=== PATIENT | female | born 1995 | race Caucasian/White ===

== ENCOUNTER 2024-02-15 21:09 | Inpatient (IN) | payer OTHER, SELFPAY ==
--- NOTE | 2024-02-15 | ECG_ITS ---
Test Reason : CHEST TIGHTNESS Blood Pressure : / mmHG Vent. Rate : 129 BPM Atrial Rate : 129 BPM P-R Int : 112 ms QRS Dur : 086 ms QT Int : 400 ms P-R-T Axes : 000 -02 091 degrees QTc Int : 586 ms Sinus tachycardia Possible Anterior infarct , age undetermined Abnormal ECG No previous ECGs available Referred By: Generic ED Physician Electronically Signed By:DANILO REYNOSO MD
--- NOTE | ~2024-02-15 | CT_ITS ---
EXAMINATION: CT ABDOMEN AND PELVIS WITH CONTRAST CLINICAL INFORMATION: Abdominal pain. Pancreatitis. COMPARISON: None available. TECHNIQUE: Multidetector volumetric images were obtained from the superior aspect of the liver through the pubic symphysis following administration 85 mL of Omnipaque 350 intravenous contrast. Sagittal and coronal reformatted images were obtained on the technologist's workstation. Oral contrast: No This CT examination was performed using dose optimization techniques as appropriate, variously including the following: *Automated exposure control *Adjustment of mA and/or kV according to patient size (this includes techniques or standardized protocols for targeted exams where dose is matched to indication/reason for exam; i.e. extremities or head) *Use of iterative reconstruction technique DLP: 959 mGy-cm FINDINGS: LUNG BASES: The visualized lung bases are unremarkable. LIVER, GALLBLADDER, AND BILIARY TREE: The liver is of diffuse diminished attenuation. No focal liver lesions are seen. There is no intrahepatic biliary duct dilatation. The gallbladder is unremarkable with no evidence of radiopaque gallstones, gallbladder wall thickening, or obvious pericholecystic inflammatory changes. PANCREAS: There is significant peripancreatic infiltration/fluid with fluid tracking along the upper retroperitoneum. The body and tail of the pancreas is of diminished enhancement compared to the neck and head of the pancreas. SPLEEN: Unremarkable. ADRENAL GLANDS: Unremarkable. KIDNEYS AND URETERS: The kidneys are normal in size, shape, and attenuation. No hydronephrosis, hydroureter, or calculi seen. No perinephric stranding. BLADDER: Unremarkable. GASTROINTESTINAL TRACT: The small and large bowel are unremarkable. The appendix is unremarkable. ABDOMINAL WALL: No significant hernia is appreciated. LYMPH NODES: Normal. VASCULAR: Unremarkable. PELVIC VISCERA: Unremarkable. OSSEOUS STRUCTURES: Unremarkable. CT/CT abdomen pelvis w IV con IMPRESSION: 1. Findings consistent with acute pancreatitis. There is diminished enhancement of the body and tail of the pancreas compared to the neck and head of the pancreas. Suspect early pancreatic necrosis. There is significant peripancreatic infiltration/fluid with fluid tracking along the upper retroperitoneum. 2. Hepatic steatosis. Fleischner guidelines were followed.
[2024-02-15 21:12] VITALS: BP 218/148; PULSE 140; RESP 20; TEMP 35.5; O2SAT 100; BMI 29.5
[2024-02-15 21:50] LABS: Hematocrit 40.7 % (37.0-47.0); Hemoglobin 14.9 g/dl (12.0-16.0); Mean Corpuscular HGB Conc 36.6 g/dl (31.0-35.0); Mean Corpuscular Hemoglobin 33.3 pg (27.0-33.0); Mean Corpuscular Volume 91.1 fL (80.0-98.0); Platelet Count 313 X10*3/uL (160-400); Red Blood Count 4.47 X10*6/uL (4.20-5.50); Red Cell Distribution Width 13.4 % (11.0-16.0)
[2024-02-15 21:53] LABS: WBC ABN SCTR FOR CBC 1
[2024-02-15 22:00] VITALS: PULSE 131
--- NOTE | 2024-02-15 22:02 | ED_ITS ---
HPI - General Adult General Chief complaint: General Medical Stated complaint: multiple issues? Time Seen by Provider: 02/15/24 21:58 Source: patient Mode of arrival: ambulatory Limitations: no limitations History of Present Illness HPI narrative: Patient with chronic back pain increased stress after dog's been anxious complaining of upper abdominal pain radiating to back pain palpitation when she arrived in the ER heart rate was in 130s blood pressure 218/148 patient says that her blood pressure and heart rate goes high whenever she gets anxious but not on any medications no headache no chest pain patient also feel nauseated patient's drinks alcohol almost every day and lately been drinking heavy Related Data Allergies Allergy/AdvReac Type Severity Reaction Status Date / Time bupropion [From Wellbutrin] Allergy Unknown Verified 02/15/24 21:15 Review of Systems 2 Review of Systems: Yes all other systems are reviewed and are negative [facility] Social History Social History Unable to assess alcohol history related to: Unknown Smoked in Last 30 Days: Yes Use of substances other than those prescribed or required for medical reasons: Unknown Advance Directives: No Advance Directives Information Provided: No Do you have a plan to hurt others: No Plan Physical Exam ED Vital Signs: Vital Signs - 24 hr 02/15/24 21:12 02/15/24 22:00 02/15/24 22:31 Temperature 96 F L Pulse Rate 140 H 129 H Pulse Rate [Monitor] 131 H Respiratory Rate 20 16 Blood Pressure 218/148 H 204/130 H Pulse Oximetry 100 96 Oxygen Delivery Method Room Air Room Air 02/15/24 23:19 02/15/24 23:48 02/16/24 00:15 Temperature Pulse Rate 128 H 125 H 125 H Pulse Rate [Monitor] Respiratory Rate 16 16 18 Blood Pressure 203/124 H 203/120 H 242/138 H Pulse Oximetry 95 96 Oxygen Delivery Method Room Air Room Air BMI result Body Mass Index 29.5 Appearance: Alert. Oriented X3. No acute distress. Anxious etoh + Eyes: PERRLA ENT: Pharynx normal. Oral Mucosa moist Neck: Normal inspection. Neck supple. CVS: Tachycardic no murmur rub Pulses normal. Respiratory: No respiratory distress. Equal air entry bilateral, no wheezing/rales/rhonchi Abdomen: Soft and tenderness in epigastric area Bowel sounds are present, no mass palpable, no CVA tenderness Skin: Skin warm and dry. Normal skin color. Normal skin turgor. Extremities: No lower extremity edema. No calf tenderness Neuro: Oriented X 3. No motor deficit. No sensory deficit.No cerebellar signs , cranial nerves II-XII intact Medications Administered Discontinued Medications Generic Name Dose Route Start Last Admin Trade Name Freq PRN Reason Stop Dose Admin Sodium Chloride 1,000 mls @ 999 mls/hr 02/15/24 22:07 02/15/24 22:23 Ns IV 02/15/24 23:07 999 mls/hr .Q1H1M ONE Administration Magnesium Sulfate 2 gm in 50 mls @ 150 mls/hr 02/15/24 22:28 02/15/24 23:35 Magnesium Sulfate/H2o IV 02/15/24 22:47 Infused ONCE ONE Infusion Potassium Chloride 10 meq in 100 mls @ 100 mls/hr 02/15/24 22:30 02/16/24 01:05 Potassium Chloride/H20 IV 02/16/24 00:29 100 mls/hr Q1H ART Administration Piperacillin Sod/Tazobactam 50 mls @ 100 mls/hr 02/15/24 23:20 02/16/24 00:15 Sod 3.375 gm/ Sodium Chloride IV 02/15/24 23:49 100 mls/hr ONCE ONE Administration Sodium Chloride 1,000 mls @ 999 mls/hr 02/15/24 23:34 02/16/24 00:50 Ns IV 02/16/24 00:34 999 mls/hr .Q1H1M ONE Administration Iohexol 85 ml 02/16/24 00:11 02/16/24 00:12 Iohexol 350 Mg/Ml 100 Ml Infus..Btl IV 02/16/24 00:12 85 ml ONCE ONE Administration Labetalol HCl 20 mg 02/16/24 00:25 02/16/24 00:50 Labetalol Hcl 100 Mg/20 Ml Vial IVPUSH 02/16/24 00:26 20 mg ONCE ONE Administration Lorazepam 2 mg 02/15/24 22:07 02/15/24 22:22 Lorazepam 2 Mg/Ml Vial IVPUSH 02/15/24 22:08 2 mg ONCE ONE Administration Morphine Sulfate 4 mg 02/15/24 22:30 02/15/24 22:53 Morphine Sulfate 4 Mg/Ml Cartridge IVPUSH 02/15/24 22:31 4 mg ONCE ONE Administration Protocol Morphine Sulfate 4 mg 02/16/24 00:26 02/16/24 00:48 Morphine Sulfate 4 Mg/Ml Cartridge IVPUSH 02/16/24 00:27 4 mg ONCE ONE Administration Protocol Ondansetron HCl 4 mg 02/15/24 22:08 02/15/24 22:24 Ondansetron Hcl 4 Mg/2 Ml Vial IVPUSH 02/15/24 22:09 4 mg ONCE ONE Administration Potassium Bicarbonate 50 meq 02/15/24 22:28 02/15/24 22:53 Potassium Bicarbonate/Cit Ac 25 Meq Tablet.Eff PO 02/15/24 22:29 50 meq ONCE ONE Administration Medical Decision Making Medical Decision Making [facility] Narrative: Patient alcoholic with upper abdominal pain workup showed acute pancreatitis also noted to be tachycardic with leukocytosis and lactic acidosis likely from necrotic pancreas with alcohol use and fluid loss and poor oral intake patient was given IV fluids and antibiotics CT scan showed pancreatitis changes with significant peripancreatic infiltration/fluid tracking along with upper retroperitoneum. Will admit patient for supportive treatment patient also had potassium 2.7 and magnesium 0.7 which was replaced Differential Diagnosis Differential Diagnoses: The differential diagnosis associated with the presentation includes Pancreatitis/gallstones/gastritis Admission/Observation Consideration of admission/observation: Escalation of care including admission/observation considered Consult Healthcare Provider Management of the patient was discussed with: Hospitalist Lab Data [facility] Lab Attestation statement: I reviewed the patient's lab results. 02/15/24 21:34 02/15/24 21:34 Labs: Lab Results 02/15/24 02/15/24 02/15/24 Range/Units 21:34 23:15 23:38 WBC 24.3 H (4.8-10.8) X10*3/uL RBC 4.47 (4.20-5.50) X10*6/uL Hgb 14.9 (12.0-16.0) g/dl Hct 40.7 (37.0-47.0) % MCV 91.1 (80.0-98.0) fL MCH 33.3 H (27.0-33.0) pg MCHC 36.6 H (31.0-35.0) g/dl RDW 13.4 (11.0-16.0) % Plt Count 313 (160-400) X10*3/uL MPV 9.0 L (9.4-12.3) fL Immature Gran % (Auto) Cancelled Neut % (Auto) Cancelled Lymph % (Auto) Cancelled [place] % (Auto) Cancelled Eos % (Auto) Cancelled Baso % (Auto) Cancelled Lymph # (Auto) Cancelled [place] # (Auto) Cancelled Eos # (Auto) Cancelled Baso # (Auto) Cancelled Abs Immat Gran (auto) Cancelled Absolute Neuts (auto) Cancelled Absolute Nucleated RBC 0.000 (0.0-0.012) X10*3/uL Nucleated RBC % (auto) 0.0 (0.0-0.2) /100WBC Neutrophils % (Manual) 92 H (45-73) % Band Neutrophils % 2 L (3-5) % Lymphocytes % (Manual) 3 L (20-40) % Monocytes % (Manual) 2 (2-11) % Basophils % (Manual) 1 (0-2) % Abs Neuts (Manual) 22.8 H (2.0-8.3) X10*3/uL Lymphocytes # (Manual) 0.7 L (1.2-4.9) X10*3/uL Monocytes # (Manual) 0.5 (0.1-1.2) X10*3/uL Basophils # (Manual) 0.2 (0.0-0.2) X10*3/uL Platelet Estimate NORMAL (NORMAL) Plt Morphology Comment NORMAL RBC Morphology NORMAL Sodium 123 L (135-145) mmol/L Potassium 2.7 L* (3.3-5.1) mmol/L Chloride 85 L (96-108) mmol/L Carbon Dioxide 15 L (22-29) mmol/L Anion Gap 26 H (12-20) BUN 5 L (9-16) mg/dL Creatinine 0.55 (0.5-1.4) mg/dL Estim Creat Clear Calc 162.4 Estimated GFR > 60 Random Glucose 121 H (60-115) mg/dL Lactic Acid 3.5 H* (0.5-2.0) mmol/L Calcium 7.8 L (8.4-10.2) mg/dL Magnesium 0.7 L* (1.6-2.6) mg/dL Total Bilirubin 1.0 (0.0-1.0) mg/dL AST 83 H (5-31) U/L ALT 43 H (0-31) U/L Alkaline Phosphatase 60 (39-117) U/L Total Protein 7.2 (6.5-8.0) g/dL Albumin 3.9 (3.5-5.0) g/dL Lipase 1602 H (8-78) U/L Urine Color Yellow Urine Appearance Clear Urine pH 6.5 (5.0-9.0) Ur Specific [place] 1.010 (1.005-1.025) Urine Protein Trace (Neg-Trace) mg/dL Urine Glucose (UA) Negative (Negative) mg/dL Urine Ketones 15 (Negative) mg/dL Urine Blood Small (1+) H (Negative) Urine Nitrite Negative (Negative) Ur Leukocyte Esterase Negative (Negative) Urine RBC 0-2 (0-2) /HPF Urine WBC 0-5 (0-5) /HPF Ur Squamous Epith Cells 0-2 (0-2) /HPF Urine Bacteria None Seen (None Seen) Hyaline Casts 0-2 (0-2) /LPF Urine Test NEGATIVE (NEGATIVE) Urine Opiates Screen POSITIVE H (Not Detect) Ur Buprenorphine Scrn Not Detected (Not Detect) ng/mL Ur Oxycodone Screen Not Detected (Not Detect) ng/mL Urine Methadone Screen Not Detected (Not Detect) ng/mL Urine Fentanyl Screen Not Detected (Not Detect) Ur Barbiturates Screen Not Detected (Not Detect) Ur Phencyclidine Scrn Not Detected (Not Detect) Ur Amphetamines Screen POSITIVE H (Not Detect) U Benzodiazepines Scrn Not Detected (Not Detect) Urine Cocaine Screen Not Detected (Not Detect) U Marijuana (THC) Screen POSITIVE H (Not Detect) Ethyl Alcohol 136 mg/dL Influenza Type A (PCR) NEGATIVE (Negative) Influenza Type B (PCR) NEGATIVE (Negative) RSV RNA Qual (PCR) NEGATIVE (Negative) SARS-CoV-2 RNA (RT-PCR) NEGATIVE (Negative) Independent Interpretation I performed an independent interpretation of an: EKG and CT Scan Interpretation: Sinus tachycardia with ventricular rate of 129 no acute STT wave changes no acute ischemia Radiology Impression Discussion of test interpretation with radiology: I have reviewed the radiologist's reading. Radiologist Impression: [address] [place] [address] CT Scan Report Signed Patient: Monie Almanzar MR#: [id number] : 1995 Acct:[id number] Age/Sex: 28 / F ADM Date: 02/16/24 Loc: [id number]: Lucy Mercer MD Ordering Physician: Jose Vickers MD Date of Service: 02/16/24 Procedure(s): CT abdomen pelvis w IV con Accession Number(s): [id number] cc: Physician,Unknown ; Jose Vickers MD~ EXAMINATION: CT ABDOMEN AND PELVIS WITH CONTRAST CLINICAL INFORMATION: Abdominal pain. Pancreatitis. COMPARISON: None available. TECHNIQUE: Multidetector volumetric images were obtained from the superior aspect of the liver through the pubic symphysis following administration 85 mL of Omnipaque 350 intravenous contrast. Sagittal and coronal reformatted images were obtained on the technologist's workstation. Oral contrast: No This CT examination was performed using dose optimization techniques as appropriate, variously including the following: *Automated exposure control *Adjustment of mA and/or kV according to patient size (this includes techniques or standardized protocols for targeted exams where dose is matched to indication/reason for exam; i.e. extremities or head) *Use of iterative reconstruction technique DLP: 959 mGy-cm FINDINGS: LUNG BASES: The visualized lung bases are unremarkable. LIVER, GALLBLADDER, AND BILIARY TREE: The liver is of diffuse diminished attenuation. No focal liver lesions are seen. There is no intrahepatic biliary duct dilatation. The gallbladder is unremarkable with no evidence of radiopaque gallstones, gallbladder wall thickening, or obvious pericholecystic inflammatory changes. PANCREAS: There is significant peripancreatic infiltration/fluid with fluid tracking along the upper retroperitoneum. The body and tail of the pancreas is of diminished enhancement compared to the neck and head of the pancreas. SPLEEN: Unremarkable. ADRENAL GLANDS: Unremarkable. KIDNEYS AND URETERS: The kidneys are normal in size, shape, and attenuation. No hydronephrosis, hydroureter, or calculi seen. No perinephric stranding. BLADDER: Unremarkable. GASTROINTESTINAL TRACT: The small and large bowel are unremarkable. The appendix is unremarkable. ABDOMINAL WALL: No significant hernia is appreciated. LYMPH NODES: Normal. VASCULAR: Unremarkable. PELVIC VISCERA: Unremarkable. OSSEOUS STRUCTURES: Unremarkable. CT/CT abdomen pelvis w IV con IMPRESSION: 1. Findings consistent with acute pancreatitis. There is diminished enhancement of the body and tail of the pancreas compared to the neck and head of the pancreas. Suspect early pancreatic necrosis. There is significant peripancreatic infiltration/fluid with fluid tracking along the upper retroperitoneum. 2. Hepatic steatosis. Fleischner guidelines were followed. Critical Care Time Critical Care Time Critical Care Time: Yes Total Critical Care Time: 60 Attestation: The patient was critically ill with a high probability of imminent or life threatening deterioration. I spent greater than 65???minutes of discontinuous time evaluating the patient,delivering critical care at the bedside, discussing and evaluating pertinent data with consultants. Critical care time does not include time spent performing separately billable procedures or teaching. Total time spent performing critical care was 60???minutes. Discharge Plan Discharge Clinical Impression: Acute pancreatitis, Alcohol abuse, Acute hypokalemia, Hypomagnesemia, Accelerated essential hypertension, Sinus tachycardia Patient Disposition: Admitted As Inpatient
[2024-02-15 22:17] LABS: Neutrophils Percent Manual 92 % (45-73)
[2024-02-15 22:18] LABS: Band Neutrophils Percent 2 % (3-5); Basophils Percent Manual 1 % (0-2); Lymphocytes Percent Manual 3 % (20-40); Monocytes Percent Manual 2 % (2-11)
[2024-02-15] MEDS: LORazepam 2 MG/ML VIAL IVPUSH (22:22)
[2024-02-15] MEDS: 0.9 % Sodium Chloride 1,000 ML 999 ML IV (22:23)
[2024-02-15] MEDS: ondansetron HCL 4 MG/2 ML VIAL IVPUSH (22:24)
[2024-02-15 22:25] LABS: Platelet Estimate NORMAL (NORMAL); Platelet Morphology Comment NORMAL; RBC Morphology NORMAL
[2024-02-15 22:27] LABS: Alanine Aminotransferase 43 U/L (0-31); Albumin Level 3.9 g/dL (3.5-5.0); Alkaline Phosphatase 60 U/L (39-117); Anion Gap 26 (12-20); Aspartate Amino Transferase 83 U/L (5-31); Basophils Abs Manual 0.2 X10*3/uL (0.0-0.2); Blood Urea Nitrogen 5 mg/dL (9-16); Calcium 7.8 mg/dL (8.4-10.2); Carbon Dioxide 15 mmol/L (22-29); Chloride 85 mmol/L (96-108); Creatinine Clr Calc Pharmacy 162.4; Estimated Glomerular Filt Rate > 60; Glucose Random 121 mg/dL (60-115); Lipase 1602 U/L (8-78); Lymphocytes Absolute Manual 0.7 X10*3/uL (1.2-4.9); Magnesium 0.7 mg/dL (1.6-2.6); Monocytes Absolute Manual 0.5 X10*3/uL (0.1-1.2); Neutrophils Absolute Manual 22.8 X10*3/uL (2.0-8.3); Potassium 2.7 mmol/L (3.3-5.1); Sodium 123 mmol/L (135-145); Total Protein 7.2 g/dL (6.5-8.0); White Blood Count 24.3 X10*3/uL (4.8-10.8)
[2024-02-15 22:28] LABS: Influenza A PCR NEGATIVE (Negative); Influenza B PCR NEGATIVE (Negative); Resp Syncy Virus RNA Qual PCR NEGATIVE (Negative); SARS COV2 PCR INHOUSE NEGATIVE (Negative)
[2024-02-15 22:31] VITALS: BP 204/130; PULSE 129; RESP 16; O2SAT 96
[2024-02-15] MEDS: Potassium Bicarbonate/Cit AC 25 MEQ TABLET.EFF 50 MEQ PO (22:53)
[2024-02-15] MEDS: Morphine Sulfate 4 MG/ML CARTRIDGE IVPUSH (22:53)
[2024-02-15] MEDS: Magnesium Sulfate/H2O 2 GM/50 ML PIGGYBACK IV (22:53)
[2024-02-15 23:12] LABS: Ethanol 136 mg/dL
[2024-02-15 23:19] VITALS: BP 203/124; PULSE 128; RESP 16; O2SAT 95
[2024-02-15 23:33] LABS: Lactic Acid 3.5 mmol/L (0.5-2.0)
[2024-02-15] MEDS: Potassium Chloride/H20 10 MEQ/100 ML PIGGYBACK 100 MEQ IV (23:35)
[2024-02-15 23:46] LABS: Appearance Urine Clear; Color Urine Yellow; Glucose Urine UA Negative (Negative); Leukocyte Esterase Urine Negative (Negative); Nitrite Urine Negative (Negative); PH 6.5 (5.0-9.0); UMIC TRIGGER UACC YES; Urine Blood Small (1+) (Negative); Urine Ketones 15 mg/dL (Negative); Urine Protein Trace mg/dL (Neg-Trace)
[2024-02-15 23:48] VITALS: BP 203/120; PULSE 125; RESP 16
[2024-02-15 23:49] LABS: UPreg QC Valid YES; Urine Pregnancy NEGATIVE (NEGATIVE)
[2024-02-15 23:54] LABS: Bacteria Urine None Seen (None Seen); Hyaline Casts Urine 0-2 /LPF (0-2); RBC Urine 0-2 /HPF (0-2); Squamous Epithelial Cell Urine 0-2 /HPF (0-2); WBC Urine 0-5 /HPF (0-5)
[2024-02-16] VITALS (12 sets, daily range): BP systolic 136–242; BP diastolic 93–138; PULSE 106–125; RESP 17–21; TEMP 36.4–36.6; O2SAT 96–100
[2024-02-16] MEDS: iohexoL 350 MG/ML 100 ML INFUS..BTL 85 ML IV (00:12)
[2024-02-16] MEDS: Piperacillin Sodium/Tazobactam 3.375 GM in 0.9 % Sodium Chloride 50 ML IV ×4 (00:15→17:34)
--- NOTE | 2024-02-16 00:42 | P.HPHOSP_ITS ---
History of Present Illness Date of Service: 02/16/24 Attending physician on admission: Lucy Mercer Chief Complaint: Abdominal pain Monie Almanzar is a 28 years old woman with history alcohol abuse presents to the emergency department complaining of epigastric pain that started yesterday associated with nausea and diarrhea. She denied events of vomiting. She stated that she drinks 2-3 alcoholic beverage daily, mostly Vodka and beer. The last time she drank was on hour and a half before arriving to the hospital. HPI was limited as the patient is in pain and has the urge to urinate. Patient also consume marijuana. Denied drug use. She stated that she has never been hospitalized for pancreatitis or alcohol abuse complications. In the ED, she was found to have significant sinus tachycardia and hypertension. Temperature is 96 degrees. There is leukocytosis 24.3, hemoglobin is 14.9 and platelets level is normal. Lactic acidosis noted, 3.5. There there are multiple electrolyte imbalances, including hypokalemia hyponatremia and hypomagnesemia. CO2 is 15 and crit 0.55. Transaminases are elevated with normal alk-phos and bilirubin. ED tx: NS 2 L bolus, Zosyn 3.375 g IV, Zofran 4 mg IV, magnesium sulfate 2 g IV, labetalol 20 mg IV and morphine 8 mg IV (total). Potassium bicarbonate 50 mEq p.o. Review of Systems 2 Review of Systems: Limited due to pain. [facility] Social History Unable to assess alcohol history related to: Unknown Smoked in Last 30 Days: Yes Use of substances other than those prescribed or required for medical reasons: Unknown Advance Directives: No Advance Directives Information Provided: No Do you have a plan to hurt others: No Plan Meds Allergies Allergy/AdvReac Type Severity Reaction Status Date / Time bupropion [From Wellbutrin] Allergy Unknown Verified 02/15/24 21:15 Active Medications: Current Medications Hydromorphone HCl (Hydromorphone Hcl 1 Mg/Ml Syringe) 1 mg SUBCUT Q4H PRN; Protocol PRN Reason: Pain, Severe (Pain Scale 7-10) Thiamine HCl 100 mg/ Sodium (Chloride) 101 mls @ 202 mls/hr IV ONCE ONE Stop: 02/16/24 01:07 Potassium Chloride/Dextrose/Sod Cl (Kcl 20 Meq In 5% Dex/0.9% Sod) 20 meq in 1,000 mls @ 125 mls/hr IVCONT .Q8H ART Ondansetron HCl (Ondansetron Hcl 4 Mg/2 Ml Vial) 4 mg IVPUSH Q6H PRN PRN Reason: Nausea and Vomiting Pantoprazole Sodium (Pantoprazole Sodium 40 Mg/10 Ml Vial) 40 mg IVPUSH ONCE STA Stop: 02/16/24 00:42 Pantoprazole Sodium (Pantoprazole Sodium 40 Mg/10 Ml Vial) 40 mg IVPUSH Q12H [facility] Physical Exam 2 Vital Signs and Narrative: Vital Signs: Last Vital Signs Temp 96 F L 02/15/24 21:12 Pulse 125 H 02/15/24 23:48 Resp 16 02/15/24 23:48 BP 203/120 H 02/15/24 23:48 Pulse Ox 95 02/15/24 23:19 O2 Del Method Room Air 02/15/24 23:19 BMI result Body Mass Index 29.5 Constitutional - Awake and Alert. Looks intoxicated. Alcohol breath. HEENT - Pupils equally round. Normal sclerae. Dry oral mucosa. Heart - Tachycardia. Regular rhythm. No murmurs. Lungs - Normal lung expansion, Normal respiratory effort, No respiratory distress, CTA bilaterally Abdomen - Increased bowel sounds. Nondistended, epigastric tenderness with guarding. Extremities - no calf tenderness bilaterally, no swelling Musculoskeletal - Normal inspection, normal ROM Skin - Warm/Dry. No jaundice. Neurological - Alert & oriented x3. Slurred and soft speech. No facial droop noted. No focal weakness grossly noted. Psychological - Depressed affect Results Labs 02/15/24 21:34 02/15/24 21:34 Labs: Laboratory Results - last 24 hr 02/15/24 02/15/24 02/15/24 21:34 23:15 23:38 MCV 91.1 MCH 33.3 H MCHC 36.6 H RDW 13.4 Plt Count 313 MPV 9.0 L Immature Gran % (Auto) Cancelled Neut % (Auto) Cancelled Lymph % (Auto) Cancelled [place] % (Auto) Cancelled Eos % (Auto) Cancelled Baso % (Auto) Cancelled Lymph # (Auto) Cancelled [place] # (Auto) Cancelled Eos # (Auto) Cancelled Baso # (Auto) Cancelled Abs Immat Gran (auto) Cancelled Absolute Neuts (auto) Cancelled Absolute Nucleated RBC 0.000 Nucleated RBC % (auto) 0.0 Neutrophils % (Manual) 92 H Band Neutrophils % 2 L Lymphocytes % (Manual) 3 L Monocytes % (Manual) 2 Basophils % (Manual) 1 Abs Neuts (Manual) 22.8 H Lymphocytes # (Manual) 0.7 L Monocytes # (Manual) 0.5 Basophils # (Manual) 0.2 Platelet Estimate NORMAL Plt Morphology Comment NORMAL RBC Morphology NORMAL Anion Gap 26 H Estim Creat Clear Calc 162.4 Estimated GFR > 60 Random Glucose 121 H Lactic Acid 3.5 H* Calcium 7.8 L Magnesium 0.7 L* Total Bilirubin 1.0 AST 83 H ALT 43 H Alkaline Phosphatase 60 Total Protein 7.2 Albumin 3.9 Lipase 1602 H Urine Color Yellow Urine Appearance Clear Urine pH 6.5 Ur Specific [place] 1.010 Urine Protein Trace Urine Glucose (UA) Negative Urine Ketones 15 Urine Blood Small (1+) H Urine Nitrite Negative Ur Leukocyte Esterase Negative Urine RBC 0-2 Urine WBC 0-5 Ur Squamous Epith Cells 0-2 Urine Bacteria None Seen Hyaline Casts 0-2 Urine Test NEGATIVE Ethyl Alcohol 136 Influenza Type A (PCR) NEGATIVE Influenza Type B (PCR) NEGATIVE RSV RNA Qual (PCR) NEGATIVE SARS-CoV-2 RNA (RT-PCR) NEGATIVE Assessment and Plan (1) Acute pancreatitis: Qualifiers: Pancreatitis type: alcohol induced Acute pancreatitis complication: u nspecified Qualified Code(s): K85.20 - Alcohol induced acute pancreatitis without necrosis or infection Status: Acute (2) Alcohol abuse: Status: Acute (3) Transaminitis: Status: Acute (4) High anion gap metabolic acidosis: Status: Acute (5) Electrolyte imbalance: Status: Acute (6) Uncontrolled hypertension: Status: Acute (7) Alcohol intoxication: Qualifiers: Complication of substance-induced condition: with unspecified complication Qualified Code(s): F10.929 - Alcohol use, unspecified with intoxication, unspecified Status: Acute Plan Monie Almanzar is a 28 y/o admitted with: * Acute alcoholic pancreatitis with suspected early pancreatic necrosis. Admit to hospitalist service. NPO. Pain control with Dilaudid as needed. Antiemetic therapy as needed. Protonix 40 mg IV q12h. Start IV fluids: D5/KCl/NS. Continue empiric IV antibiotic therapy with Zosyn. Monitor CRP. Patient advised to abstain for alcohol. * 3 SIRS criteria (temp 96.0, tachycardia and leukocytosis) + 1 organ dysfuntion + suspected early pancreatic necrosis (infected?). Likely multifactorial: Lactic acidosis secondary to alcohol abuse, dehydration, pain and alcohol intoxication. Patient received vancomycin + Zosyn in ED and 2L bolus of NS given. Blood cultures obtained -will follow results. * High anion gap metabolic acidosis. Likely multifactorial: Lactic acidosis and alcoholic ketosis. Check serum pH and continue to monitor bicarb level. Continue IV fluids. * Multiple electrolyte imbalances. Replete as needed. Continue to monitor lytes level. Telemetry. * Alcohol intoxication. EtOH level 136. [facility] protocol: will start phenobarbital as needed. Thiamine 100 mg IV daily. Multivitamins and folic acid when able. Social work/case management consult. * Uncontrolled hypertension. Secondary to alcohol intoxication. Labetalol IV as needed. * Transaminitis. Secondary to alcohol abuse. Patient advised to abstain from alcohol. Continue to monitor LFTs. Code status: Full DVT prophylaxis: Heparin Patient will need hospitalization for at least 2 midnights for acute pancreatitis treatment with IV pain meds, IV fluids antiemetic therapy. Patient also will need close monitoring of alcohol withdrawal symptoms. Quality Stroke Does the patient have a stroke diagnosis?: No VTE Prior VTE?: No VTE Risk Level:: Medical - moderate - high VTE Device Contraindication: Treatment Not Indicated VTE Drug Contraindication: N/A - Med Ordered
[2024-02-16] MEDS: Morphine Sulfate 4 MG/ML CARTRIDGE IVPUSH (00:48)
[2024-02-16] MEDS: 0.9 % Sodium Chloride 1,000 ML 999 ML IV (00:50)
[2024-02-16] MEDS: Labetalol HCL 100 MG/20 ML VIAL 20 MG IVPUSH (00:50)
[2024-02-16] MEDS: Potassium Chloride/H20 10 MEQ/100 ML PIGGYBACK 100 MEQ IV ×4 (01:05→09:38)
[2024-02-16 01:17] LABS: Reflex Lactate? Lactic Acid Added
[2024-02-16] MEDS: Thiamine HCL 100 MG in 0.9 % Sodium Chloride 100 ML 202 MG IV ×2 (01:45→11:32)
[2024-02-16 01:47] LABS: Amphetamine Screen Urine POSITIVE (Not Detect); Barbiturates, Urine Not Detected (Not Detect); Benzodiazepines Screen Urine Not Detected (Not Detect); Buprenorphine Scr Not Detected (Not Detect); Cannabinoid Screen Urine POSITIVE (Not Detect); Cocaine Screen Urine Not Detected (Not Detect); Fentanyl, urine Not Detected (Not Detect); Methadone Screen, Urine Not Detected (Not Detect); Opiate Screen Urine POSITIVE (Not Detect); Oxycodone Screen Urine Not Detected (Not Detect); Phencyclidine Screen Urine Not Detected (Not Detect)
[2024-02-16 01:50] LABS: MANUAL DIFF FLAG NO
[2024-02-16 01:52] LABS: Basophils Absolute Auto 0.1 X10*3/uL (0.0-0.2); Basophils Percent Auto 0.3 % (0-2); Eosinophils Percent Auto 0.1 % (0-4); Hematocrit 39.4 % (37.0-47.0); Hemoglobin 14.5 g/dl (12.0-16.0); Imm Gran Abs Auto 0.07 X10*3/uL (0.00-0.03); Imm Gran Pct Auto 0.3 % (0.0-0.4); Lymphocytes Percent Auto 4.8 % (20-40); Mean Corpuscular HGB Conc 36.8 g/dl (31.0-35.0); Mean Corpuscular Hemoglobin 33.5 pg (27.0-33.0); Mean Platelet Volume 9.1 fL (9.4-12.3); Monocytes Absolute Auto 1.1 X10*3/uL (0.1-1.2); Monocytes Percent Auto 5.2 % (2-11); Neutrophils Absolute Auto 19.1 x10*3/uL (2.0-8.3); Neutrophils Percent Auto 89.3 % (45-73); Platelet Count 270 X10*3/uL (160-400); Red Blood Count 4.33 X10*6/uL (4.20-5.50); Red Cell Distribution Width 13.3 % (11.0-16.0); White Blood Count 21.3 X10*3/uL (4.8-10.8)
[2024-02-16 01:55] LABS: VBG Base Excess -5.7 mmol/L; VBG HCO3 17 mmol/L (22-26); VBG pCO2 29 mmHg; VBG pH 7.38 (7.32-7.43); VBG pO2 45 mmHg
[2024-02-16 01:55] LABS: Venous Blood Gas Refer to POC result
[2024-02-16 01:58] LABS: C Reactive Protein 2.94 mg/dL (< or = 0.50)
[2024-02-16] MEDS: KCl 20 mEq in 5% Dex/0.9% Sod 20 MEQ/1,000 ML IV.SOLN 125 MEQ IVCONT (02:00)
[2024-02-16] MEDS: Pantoprazole Sodium 40 MG/10 ML VIAL IVPUSH ×3 (02:05→20:38)
[2024-02-16 02:11] LABS: ~Lactic Acid-LAB USE ONLY 3.2 mmol/L (0.5-2.0)
[2024-02-16 02:12] LABS: Alanine Aminotransferase 34 U/L (0-31); Albumin Level 3.3 g/dL (3.5-5.0); Alkaline Phosphatase 55 U/L (39-117); Anion Gap 23 (12-20); Aspartate Amino Transferase 75 U/L (5-31); Bilirubin Total 1.1 mg/dL (0.0-1.0); Blood Urea Nitrogen 5 mg/dL (9-16); Carbon Dioxide 14 mmol/L (22-29); Chloride 90 mmol/L (96-108); Creatinine Clr Calc Pharmacy 178.6; Estimated Glomerular Filt Rate > 60; Glucose Random 128 mg/dL (60-115); Magnesium 1.5 mg/dL (1.6-2.6); Potassium 2.6 mmol/L (3.3-5.1); Sodium 124 mmol/L (135-145); Total Protein 6.2 g/dL (6.5-8.0)
[2024-02-16] MEDS: diazePAM 10 MG/2 ML CARTRIDGE 5 MG IVPUSH (02:47)
[2024-02-16] MEDS: ondansetron HCL 4 MG/2 ML VIAL IVPUSH ×3 (02:51→17:30)
--- NOTE | 2024-02-16 03:44 | PC.NURSE ---
handoff to agustin torres rn
[2024-02-16 03:48] LABS: Reflex Lactate? 2 Y
[2024-02-16] MEDS: Lactated Ringers 1,000 ML 999 ML IV (04:15)
[2024-02-16] MEDS: Magnesium Sulfate/D5W 1 GM/100 ML PIGGYBACK IV (04:17)
--- NOTE | 2024-02-16 04:23 | PC.NURSE ---
assumed care- pt scoring 8 on CIWA, messaged provider
[2024-02-16 04:32] LABS: Basophils Absolute Auto 0.1 X10*3/uL (0.0-0.2); Basophils Percent Auto 0.3 % (0-2); Eosinophils Percent Auto 0.1 % (0-4); Hematocrit 43.8 % (37.0-47.0); Hemoglobin 16.1 g/dl (12.0-16.0); Imm Gran Abs Auto 0.08 X10*3/uL (0.00-0.03); Imm Gran Pct Auto 0.4 % (0.0-0.4); Lymphocytes Percent Auto 4.5 % (20-40); MANUAL DIFF FLAG SCAN; Mean Corpuscular HGB Conc 36.8 g/dl (31.0-35.0); Mean Corpuscular Hemoglobin 33.6 pg (27.0-33.0); Mean Corpuscular Volume 91.4 fL (80.0-98.0); Mean Platelet Volume 9.6 fL (9.4-12.3); Monocytes Absolute Auto 1.1 X10*3/uL (0.1-1.2); Monocytes Percent Auto 4.7 % (2-11); Neutrophils Absolute Auto 20.4 x10*3/uL (2.0-8.3); Platelet Count 265 X10*3/uL (160-400); Red Blood Count 4.79 X10*6/uL (4.20-5.50); Red Cell Distribution Width 13.3 % (11.0-16.0); SCAN SMEAR FLAG 1; White Blood Count 22.6 X10*3/uL (4.8-10.8)
[2024-02-16] MEDS: PHENobarbitaL sodium 130 MG/ML IM ONCE 236 MG IM (04:47)
[2024-02-16 04:50] LABS: SLIDE REVIEW VERIFIED
[2024-02-16 04:55] LABS: Alanine Aminotransferase 38 U/L (0-31); Albumin Level 3.7 g/dL (3.5-5.0); Alkaline Phosphatase 63 U/L (39-117); Anion Gap 22 (12-20); Aspartate Amino Transferase 85 U/L (5-31); Bilirubin Total 1.4 mg/dL (0.0-1.0); Blood Urea Nitrogen 4 mg/dL (9-16); Calcium 7.3 mg/dL (8.4-10.2); Carbon Dioxide 17 mmol/L (22-29); Chloride 89 mmol/L (96-108); Creatinine Clr Calc Pharmacy 153.9; Estimated Glomerular Filt Rate > 60; Glucose Random 123 mg/dL (60-115); Magnesium 1.5 mg/dL (1.6-2.6); Potassium 2.8 mmol/L (3.3-5.1); Sodium 125 mmol/L (135-145)
[2024-02-16 04:56] LABS: ~Lactic Acid-LAB USE ONLY 3.5 mmol/L (0.5-2.0)
[2024-02-16 05:00] LABS: Lipase 1121 U/L (8-78)
[2024-02-16] MEDS: Labetalol HCL 100 MG/20 ML VIAL 10 MG IVPUSH (05:54)
[2024-02-16] MEDS: Potassium Chloride/H20 10 MEQ/100 ML PIGGYBACK IV (05:56)
[2024-02-16] MEDS: PHENobarbitaL sodium 130 MG/ML VIAL IM Q3Hx2 177 MG IM ×2 (07:26→11:26)
--- NOTE | 2024-02-16 08:27 | PC.NURSE ---
per pharmacy unknown compatibility between Kcl/H20 and 20mEq KCl/D5/NS, recommended to run separately.
[2024-02-16] MEDS: HYDROmorphone HCl 1 MG/ML SYRINGE IVPUSH ×4 (08:34→22:17)
--- NOTE | 2024-02-16 08:45 | PHA.MEDREC ---
Pharmacy Consult ? Medication Reconciliation Pharmacy has completed the medication reconciliation. Patient has not started prazosin 1 mg PM yet, although it was recently prescribed. Leaving off med rec.
[2024-02-16] MEDS: 0.9 % Sodium Chloride 1,000 ML 150 ML IVCONT ×2 (10:50→17:18)
[2024-02-16] MEDS: Magnesium Sulfate/H2O 2 GM/50 ML PIGGYBACK IV (12:35)
[2024-02-16 13:24] LABS: Anion Gap 20 (12-20); Blood Urea Nitrogen 3 mg/dL (9-16); Calcium 6.8 mg/dL (8.4-10.2); Carbon Dioxide 16 mmol/L (22-29); Chloride 92 mmol/L (96-108); Creatinine Clr Calc Pharmacy 182.2; Estimated Glomerular Filt Rate > 60; Glucose Random 152 mg/dL (60-115); Magnesium 1.6 mg/dL (1.6-2.6); Potassium 3.5 mmol/L (3.3-5.1); Sodium 124 mmol/L (135-145)
--- NOTE | 2024-02-16 16:22 | PM.EVENT ---
Event Note Date of Service: 02/16/24 Event Note: Patient seen examined Feels better with less abdominal pain after receiving IV Dilaudid On examination awake alert Abdomen soft, mid abdominal tenderness to palpation, no guarding, no rigidity, no distention 28-year-old admitted due to abdominal pain, and ER noted to have leukocytosis, lactic acidosis, hypokalemia, hyponatremia and hypo magnesemia, CT abdomen and pelvis showed findings consistent with acute pancreatitis with suspicion for early pancreatic necrosis, significant peripancreatic in alteration/fluid with fluid tracking along the upper retroperitoneum and hepatic steatosis Acute alcoholic pancreatitis with suspected early pancreatic necrosis will continue aggressive IV fluids, analgesics, NPO and IV Zosyn strongly recommend to abstain from alcohol Multiple electrolyte abnormalities hypo natremia likely due to alcohol potomania, patient NPO treat with IV normal saline follow sodium level replete magnesium and potassium, follow BMP Alcohol intoxication with alcohol level 136 with high likelihood of alcohol withdrawal continue phenobarb, thiamine and folic acid, elevated BP likely due to alcohol intoxication and pain, continue close blood pressure monitoring. Follow clinical course closely aggressively hydrate patient/monitor CIWA/follow magnesium potassium, BMP liver enzymes, triglyceride hepatitis profile, lipase. Time Spent With Patient Time: Total time managing care of this patient today ____ minutes.
--- NOTE | 2024-02-16 19:02 | PM.EVENT ---
Event Note Date of Service: 02/16/24 Event Note: GI Consult-Full note dictated-History from patient, , and EMR. Imp: Acute EtOH-induced pancreatitis with associated leukocytosis, hypocalcemia, and tachycardia. CT has raised a suspicion of necrosis, but no sign of abscess. She does not appear toxic and she reports feeling much better since arrival in the ER. Abdominal exam is currently benign other than some mild tenderness. Her Oxygen sats are good at 98% on RA at the present time. Rec: Supportive care as you are doing. Calcium repletion. NPO until things improve. F/U labs in AM. Continue antibiotics and PPI. Low threshold for repeat CT with IV contrast and transfer to tertiary center if she deteriorates clinically with fevers, worsening pain, etc. Discussed need for nursing home sobriety with her. D/W patient and in detail. Thanks Time Spent With Patient Time: Total time managing care of this patient today ____ minutes.
[2024-02-16] MEDS: Calcium Gluconate/NaCl,Iso-Osm 1 GM/50 ML PLAST..BAG IV (19:25)
[2024-02-16] MEDS: PHENobarbitaL 15 MG TABLET 45 MG PO (20:40)
[2024-02-17] MEDS: 0.9 % Sodium Chloride 1,000 ML 150 ML IVCONT ×3 (00:20→17:19)
[2024-02-17] MEDS: Piperacillin Sodium/Tazobactam 3.375 GM in 0.9 % Sodium Chloride 50 ML IV ×4 (00:21→19:37)
[2024-02-17 01:05] VITALS: BP 132/86; PULSE 117; RESP 17; TEMP 36.6; O2SAT 97
--- NOTE | 2024-02-17 03:20 | CONS_ITS ---
DATE OF SERVICE: 02/16/2024 REASON FOR CONSULTATION: Alcohol-induced pancreatitis. HISTORY OF PRESENT ILLNESS: This has been obtained for the patient, her , and the medical record. The patient is a 28-year-old female with a longstanding history of alcohol abuse up until a day or 2 prior to this admission. She has had some anorexia in the past few days, but developed pain on the day prior to admission. This was associated with some vomiting. She denies any previous history of pancreatitis nor peptic ulcer disease. She denies any previous hospitalizations for alcohol-related illness and denies any history of liver disease as far as she is aware. She came to the ER for evaluation and was found to have acute pancreatitis based on laboratories and imaging studies. She denies any hematemesis nor coffee-grounds emesis. She has not had any diarrhea, hematochezia, nor melena. She denies any family history of pancreatitis. She has not been on any new medications. Since admission here over the past 24 hours or so, she does report that she is definitely feeling better. She has had some tachycardia, but her vital signs are otherwise stable. She has been afebrile. Her oxygen saturations have been very good on room air with the most recent one of 98%. She was initially hypertensive but that has been improving as well. She reports that her pain is much better. She has had no further vomiting. MEDICATIONS: At home included Vraylar, Adderall, p.r.n. famotidine, Flonase, and control pill. Medications here in the hospital include Adderall, Vraylar, Flonase p.r.n., Dilaudid p.r.n., labetalol p.r.n., control pill, Zofran p.r.n., IV Protonix, phenobarbital, IV Zosyn, IV thiamine. PAST MEDICAL HISTORY: ADHD. Bipolar disease. Alcohol abuse. Hypertension. She denies any history of diabetes, [place], or stroke. ALLERGIES: SHE DOES HAVE ALLERGIES. SOCIAL HISTORY: She is on disability. She is . Alcohol abuse as above. She smokes cigarettes and marijuana. FAMILY HISTORY: Noncontributory. PHYSICAL EXAMINATION: GENERAL: The patient is an alert, but somewhat sleepy female, but in no distress. She does not appear to be toxic. SKIN: Warm and dry. Nonjaundiced. Anicteric sclerae. NECK: Supple. CHEST: Clear. CARDIAC: Normal S1, S2. ABDOMEN: Soft, slightly distended, with some mild tenderness. However, there is no mass, rebound, or guarding. EXTREMITIES: Without edema. LABORATORIES: Sodium 124, potassium 3.5, chloride 92, CO2 of 16, BUN is 3 with a creatinine of 0.5. Glucose 152. Calcium level is down to 6.8, had been 7.3 earlier today, magnesium 1.6. Total bilirubin 1.4, AST 85, ALT 38, alkaline phosphatase 63, lipase 1121, albumin 3.7. Alcohol level was 136. Toxicology screen was positive for opiates, amphetamines, and marijuana. CT scan of her abdomen and pelvis done early this morning, with IV contrast, described a fatty liver, but without any focal lesions, nor biliary obstruction. Gallbladder appeared unremarkable. Pancreas was consistent with some pancreatitis as well as some diminished enhancement in the body and tail of the pancreas compared to the neck and head of the pancreas. There was no sign of any abscess nor cyst. The remainder of the CT was unremarkable. IMPRESSION: The patient is a 28-year-old female with chronic alcohol abuse, presenting with alcohol-induced pancreatitis. She does not appear to be toxic and does report that she is feeling better, although does have a leukocytosis, tachycardia, and hypocalcemia at the present time. Her abdominal exam is fairly benign. Her respiratory status is stable. The CT scan while raising a suspicion of some necrosis does not appear otherwise particularly worrisome at this time. At this point, I will continue supportive care as you are doing. I would add some calcium repletion. I would keep her n.p.o. until she feels improved enough to be able to tolerate some liquids. I would follow up laboratories in the morning. I will continue antibiotics and her PPI. I would have a low threshold to repeat a CT with IV contrast if she develops any increasing pain, fevers, or other worrisome features, so as to rule out worsening pancreatitis that might require transfer to a tertiary center. If things remain otherwise stable here, then her diet can be advanced as she feels better from a clinical standpoint. I did review with her and her in detail the need for long-term sobriety going forward. This has all been discussed with her and her in detail. They are comfortable with this plan. MD MAITE Crow/PATRICA / [phone]
[2024-02-17] MEDS: ondansetron HCL 4 MG/2 ML VIAL IVPUSH (04:45)
[2024-02-17] MEDS: HYDROmorphone HCl 1 MG/ML SYRINGE IVPUSH ×3 (04:45→19:31)
[2024-02-17 06:09] VITALS: BP 130/89; PULSE 121; RESP 17; TEMP 36.3; O2SAT 97
[2024-02-17] MEDS: PHENobarbitaL 15 MG TABLET 45 MG PO ×2 (09:13→21:33)
[2024-02-17] MEDS: Pantoprazole Sodium 40 MG/10 ML VIAL IVPUSH ×2 (09:14→21:44)
[2024-02-17 09:16] LABS: Hematocrit 37.5 % (37.0-47.0); Hemoglobin 13.4 g/dl (12.0-16.0); Mean Corpuscular HGB Conc 35.7 g/dl (31.0-35.0); Mean Corpuscular Hemoglobin 33.8 pg (27.0-33.0); Mean Corpuscular Volume 94.5 fL (80.0-98.0); Mean Platelet Volume 10.2 fL (9.4-12.3); Platelet Count 221 X10*3/uL (160-400); Red Blood Count 3.97 X10*6/uL (4.20-5.50); Red Cell Distribution Width 14.3 % (11.0-16.0); White Blood Count 23.6 X10*3/uL (4.8-10.8)
[2024-02-17] MEDS: Amphetamine Mixed Salts 10 MG TABLET 30 MG PO ×2 (09:17→14:29)
[2024-02-17] MEDS: Thiamine HCL 100 MG in 0.9 % Sodium Chloride 100 ML 202 MG IV (09:20)
[2024-02-17 09:56] LABS: Alanine Aminotransferase 28 U/L (0-31); Albumin Level 3.4 g/dL (3.5-5.0); Alkaline Phosphatase 62 U/L (39-117); Anion Gap 16 (12-20); Aspartate Amino Transferase 45 U/L (5-31); Bilirubin Direct 0.5 mg/dL (0.0-0.5); Bilirubin Total 0.9 mg/dL (0.0-1.0); Blood Urea Nitrogen 6 mg/dL (9-16); Calcium 7.3 mg/dL (8.4-10.2); Carbon Dioxide 19 mmol/L (22-29); Chloride 95 mmol/L (96-108); Creatinine Clr Calc Pharmacy 148.8; Estimated Glomerular Filt Rate > 60; Glucose Random 146 mg/dL (60-115); Lipase 237 U/L (8-78); Potassium 3.2 mmol/L (3.3-5.1); Sodium 127 mmol/L (135-145); Total Protein 6.7 g/dL (6.5-8.0); Triglycerides 183 mg/dL (<150)
[2024-02-17] MEDS: Cariprazine HCl 3 MG CAPSULE PO (09:59)
[2024-02-17 10:26] VITALS: BP 153/106; PULSE 126; RESP 18; TEMP 36.7; O2SAT 100
--- NOTE | 2024-02-17 12:24 | P.PNIM_ITS ---
Subjective Subjective Date of Service: 02/17/24 Interval History: Being followed for acute pancreatitis. Feeling better this morning, denies nausea, no vomiting, complaining of abdominal soreness, but no sharp or severe pain, no fevers, no chills, noted to have tachycardia but patient feels it is chronic for her, feels heart racing, no chest pain, no palpitations. Review of Systems All other system reviewed and negative. Physical Exam 2 Vital Signs: Vital Signs: Last Vital Signs Temp 98.0 F 02/17/24 10:26 Pulse 126 H 02/17/24 10:26 Resp 18 02/17/24 10:26 BP 153/106 H 02/17/24 10:26 Pulse Ox 100 02/17/24 10:26 O2 Del Method Room Air 02/17/24 10:26 BMI result Body Mass Index 29.5 Const: Other: General awake alert, in no acute distress. Neck is supple no JVD. CVS regular rate rhythm, tachycardia Respiratory lungs clear to auscultation, no respiratory distress, no wheeze, no rhonchi. Gastrointestinal abdomen soft, minimal mid abdominal discomfort to palpation, no guarding, no rigidity, bowel sounds audible Extremities no edema. Neuro non focal , no tremors Psych appropriate affect Objective Data Active Medications Amphetamine/Dextroamphetamine (Amphetamine Mixed Salts 10 Mg Tablet) 30 mg PO BID@0900,1400 [facility] Last Admin: 02/17/24 09:17 Dose: 30 mg Documented By: TALITA Cariprazine (Cariprazine Hcl 3 Mg Capsule) 3 mg PO DAILY [facility] Last Admin: 02/17/24 09:59 Dose: 3 mg Documented By: TALITA Fluticasone Propionate (Fluticasone Propionate Nasal 16 Gm [place]) 2 spray NOSTRIL-B DAILY PRN PRN Reason: Allergy Symptoms Hydromorphone HCl (Hydromorphone Hcl 1 Mg/Ml Syringe) 1 mg IVPUSH Q4H PRN; Protocol PRN Reason: Pain, Severe (Pain Scale 7-10) Last Admin: 02/17/24 04:45 Dose: 1 mg Documented By: MATILDE Thiamine HCl 100 mg/ Sodium (Chloride) 101 mls @ 202 mls/hr IV DAILY [facility] Last Infusion: 02/17/24 11:49 Dose: Infused Documented By: LETI Piperacillin Sod/Tazobactam (Sod 3.375 gm/ Sodium Chloride) 50 mls @ 100 mls/hr IV Q6H [facility] Last Infusion: 02/17/24 05:50 Dose: Infused Documented By: MATILDE Sodium Chloride (Ns) 1,000 mls @ 150 mls/hr IVCONT .Q6H40M ART Last Admin: 02/17/24 09:16 Dose: 150 mls/hr Documented By: TALITA Labetalol HCl (Labetalol Hcl 100 Mg/20 Ml Vial) 10 mg IVPUSH Q4H PRN; Protocol PRN Reason: SBP > 170 Last Admin: 02/16/24 05:54 Dose: 10 mg Documented By: ROBERTH Non-Formulary Medication (Norethindrone Ac-Eth Estradiol [Microgestin 10/20 ()]) 1 tab PO DAILY [facility] Ondansetron HCl (Ondansetron Hcl 4 Mg/2 Ml Vial) 4 mg IVPUSH Q6H PRN PRN Reason: Nausea and Vomiting Last Admin: 02/17/24 04:45 Dose: 4 mg Documented By: MATILDE Pantoprazole Sodium (Pantoprazole Sodium 40 Mg/10 Ml Vial) 40 mg IVPUSH Q12H [facility] Last Admin: 02/17/24 09:14 Dose: 40 mg Documented By: TALITA Phenobarbital (Phenobarbital 15 Mg Tablet) 45 mg PO BID [facility]; Protocol Stop: 02/18/24 09:01 Last Admin: 02/17/24 09:13 Dose: 45 mg Documented By: TALITA Phenobarbital (Phenobarbital 30 Mg Tablet) 30 mg PO BID [facility]; Protocol Stop: 02/20/24 09:01 Phenobarbital (Phenobarbital 15 Mg Tablet) 15 mg PO DAILY [facility]; Protocol Stop: 02/22/24 09:01 Labs 02/17/24 09:11 02/17/24 09:11 Labs: Laboratory Results - last 24 hr 02/16/24 02/17/24 12:55 09:11 MCV 94.5 MCH 33.8 H MCHC 35.7 H RDW 14.3 Plt Count 221 MPV 10.2 Absolute Nucleated RBC 0.000 Nucleated RBC % (auto) 0.0 Anion Gap 20 16 Estim Creat Clear Calc 182.2 148.8 Estimated GFR > 60 > 60 Random Glucose 152 H 146 H Calcium 6.8 L D 7.3 L D Magnesium 1.6 2.0 Total Bilirubin 0.9 Direct Bilirubin 0.5 AST 45 H ALT 28 Alkaline Phosphatase 62 Total Protein 6.7 Albumin 3.4 L Triglycerides 183 H Lipase 237 H Microbiology Microbiology Results: Microbiology 02/15/24 23:30 Blood Culture - Preliminary Blood - Venous No growth after 24 hours. 02/15/24 23:26 Blood Culture - Preliminary Blood - Venous No growth after 24 hours. Assessment and Plan (1) Sinus tachycardia: Status: Acute (2) Hypomagnesemia: Status: Acute (3) Acute hypokalemia: Status: Acute (4) Alcohol intoxication: Status: Acute Plan 28-year-old admitted due to abdominal pain, and ER noted to have leukocytosis, lactic acidosis, hypokalemia, hyponatremia and hypo magnesemia, CT abdomen and pelvis showed findings consistent with acute pancreatitis with suspicion for early pancreatic necrosis, significant peripancreatic infiltration/fluid with fluid tracking along the upper retroperitoneum and hepatic steatosis Acute alcoholic pancreatitis with suspected early pancreatic necrosis Abdominal pain improving, persistent leukocytosis likely reactive, no fevers lipase trended down/ will continue IV fluids, analgesics, and IV Zosyn Will place on clear liquid diet/clear ensure strongly recommend to abstain from alcohol Monitor renal function/electrolytes/CBC Seen by GI agree with above treatment plan Acute hyponatremia due to beer potomania, gradually improving, monitor BMP, restrict po fluids. Acute hypokalemia will replete and follow labs Acute hypomagnesemia repleted and normalized. Acute hypocalcemia status post IV calcium gluconate, calcium improved to 7.3,follow labs. Alcohol intoxication with high likelihood of alcohol withdrawal continue phenobarb, thiamine and folic acid, counseling done Tachycardia likely due to alcohol withdrawal. Addiction consult High anion gap metabolic acidosis likely due to alcohol abuse resolved with IV fluids Elevated blood pressure likely due to pain , BP now improved. In my clinical judgment patient need continued inpatient hospitalization for continued treatment of acute alcoholic pancreatitis with IV analgesics, IV fluids and aggressive electrolyte replacement. Quality Stroke Does the patient have a stroke diagnosis?: No VTE Prior VTE?: No VTE Risk Level:: Medical - moderate - high VTE Device Contraindication: Treatment Not Indicated VTE Drug Contraindication: N/A - Med Ordered
[2024-02-17] MEDS: Potassium Chloride/H20 10 MEQ/100 ML PIGGYBACK 100 MEQ IV ×2 (14:30→17:36)
--- NOTE | 2024-02-17 15:55 | MHC.CM.PN ---
IMM 02/16. PT SELF-CARE, LIVES AT HOME WITH HER WHO WILL TRANSPORT HER HOME AT DISCHARGE. NEW HCP COMPLETED WITH PT, NOW ON FILE. PCP: JAMES BERKOWITZ
[2024-02-17] MEDS: KCl 20 mEq in 5 % Dex/Lact Rin 20 MEQ/1,000 ML IV.SOLN 125 MEQ IVCONT (17:36)
--- NOTE | 2024-02-17 19:47 | PC.NURSE ---
IV fluids paused at this time. ABX not compatible per pharmacy. will resume after 30 minute abx infusion. only 1 US IV at this time to RAC
--- NOTE | 2024-02-17 20:05 | PC.NURSE ---
1800 abx started late d/t fluid incompatibility. pt difficult stick, LAC iv pulled out. only one working iv.
--- NOTE | 2024-02-17 20:11 | MHC.EDTECH ---
Pt transferred to hospital bed
[2024-02-17 20:23] VITALS: BP 149/89; PULSE 130; RESP 20; TEMP 37.4; O2SAT 96
[2024-02-17] MEDS: HYDROmorphone HCl 1 MG/ML SYRINGE 1.5 MG IVPUSH (21:33)
[2024-02-18] VITALS: BP 168/103; PULSE 116; RESP 23; TEMP 36.1; O2SAT 97
[2024-02-18] MEDS: Piperacillin Sodium/Tazobactam 3.375 GM in 0.9 % Sodium Chloride 50 ML IV ×3 (01:05→18:47)
[2024-02-18] MEDS: KCl 20 mEq in 5 % Dex/Lact Rin 20 MEQ/1,000 ML IV.SOLN 125 MEQ IVCONT (03:36)
[2024-02-18] MEDS: HYDROmorphone HCl 1 MG/ML SYRINGE 1.5 MG IVPUSH ×2 (03:44→09:23)
[2024-02-18 04:00] LABS: HBS Num1 42.83 mIU/mL (0-7.99); HBc Num1 0.06 S/CO (0.00-0.79); HBsAGNum1 0.22 S/CO (0.00-0.99); Hepatitis A Antibody IgM 0.11 Index (0-0.79); Hepatitis B Core Antibody Nonreactive (Nonreactive); Hepatitis B Surface Antigen Negative (Negative); ~Hepatitis A Antibody IgM Nonreactive (Nonreactive); ~Hepatitis B Surface Antibody REACTIVE (Nonreactive); ~Hepatitis C Antibody Nonreactive (Nonreactive)
--- NOTE | 2024-02-18 04:45 | PC.NURSE ---
US 20g IV to L forearm, maintenance fluids running
[2024-02-18 04:51] VITALS: BP 158/94; PULSE 122; RESP 18; TEMP 36.8; O2SAT 97
--- NOTE | 2024-02-18 04:55 | PC.NURSE ---
pt washed up in room, changed gown, using commode at bedside. has not slept much.
[2024-02-18 05:07] LABS: Hematocrit 30.4 % (37.0-47.0); Hemoglobin 10.6 g/dl (12.0-16.0); Mean Corpuscular HGB Conc 34.9 g/dl (31.0-35.0); Mean Corpuscular Volume 94.7 fL (80.0-98.0); Mean Platelet Volume 9.9 fL (9.4-12.3); Platelet Count 200 X10*3/uL (160-400); Red Blood Count 3.21 X10*6/uL (4.20-5.50); Red Cell Distribution Width 14.5 % (11.0-16.0); White Blood Count 17.8 X10*3/uL (4.8-10.8)
[2024-02-18 05:26] LABS: Anion Gap 15 (12-20); Blood Urea Nitrogen < 3 mg/dL (9-16); Calcium 6.9 mg/dL (8.4-10.2); Carbon Dioxide 19 mmol/L (22-29); Chloride 101 mmol/L (96-108); Creatinine Clr Calc Pharmacy 156.7; Estimated Glomerular Filt Rate > 60; Glucose Random 175 mg/dL (60-115); Magnesium 1.9 mg/dL (1.6-2.6); Potassium 2.8 mmol/L (3.3-5.1); Sodium 132 mmol/L (135-145)
--- NOTE | 2024-02-18 05:31 | PC.NURSE ---
critical lab: Adriana Caraballo.8. aware
[2024-02-18] MEDS: Potassium Chloride Packet 20 MEQ PACKET 40 MEQ PO (05:39)
[2024-02-18] MEDS: KCl 40 mEq in 0.9 % Sodium Chl 40 MEQ/1,000 ML IV.SOLN 125 MEQ IVCONT (05:43)
--- NOTE | 2024-02-18 06:09 | PC.NURSE ---
IV fluids paused med discontinued by .
[2024-02-18 07:43] VITALS: BP 177/102; PULSE 129; RESP 20; O2SAT 98
[2024-02-18 08:08] LABS: CRP High Sensitivity >20.0 mg/L
[2024-02-18] MEDS: LORazepam 0.5 MG TABLET PO (09:00)
[2024-02-18] MEDS: Potassium Chloride ER 20 MEQ TAB.ER.PRT 40 MEQ PO (09:01)
[2024-02-18] MEDS: Cariprazine HCl 3 MG CAPSULE PO (09:02)
[2024-02-18] MEDS: PHENobarbitaL 15 MG TABLET 45 MG PO (09:02)
[2024-02-18] MEDS: Pantoprazole Sodium 40 MG/10 ML VIAL IVPUSH (09:02)
[2024-02-18] MEDS: Amphetamine Mixed Salts 10 MG TABLET 30 MG PO ×2 (09:02→15:29)
[2024-02-18] MEDS: ondansetron HCL 4 MG/2 ML VIAL IVPUSH (09:23)
[2024-02-18] MEDS: Calcium Gluconate/NaCl,Iso-Osm 1 GM/50 ML PLAST..BAG IV (09:27)
[2024-02-18] MEDS: Thiamine HCL 100 MG in 0.9 % Sodium Chloride 100 ML 202 MG IV (10:35)
--- NOTE | 2024-02-18 10:47 | HO.PM.IMPN ---
Subjective Subjective Date of Service: 02/18/24 Interval History: Patient very anxious/agitated, complaining of lack of sleep, due to constant noises in ED, complaining of generalized pain lower back legs, abdominal pain has improved, no nausea, no vomiting, tolerating clears, no fevers, no chills persistent tachycardia that according to patient is chronic. Review of Systems All other system reviewed and negative Physical Exam Vital Signs: Vital Signs: Last Vital Signs Temp 98.2 F 02/18/24 04:51 Pulse 129 H 02/18/24 07:43 Resp 20 02/18/24 07:43 BP 177/102 H 02/18/24 07:43 Pulse Ox 98 02/18/24 07:43 O2 Del Method Room Air 02/18/24 07:43 BMI result Body Mass Index 29.5 Const: Other: General awake alert, in no acute distress. Neck is supple no JVD. CVS regular rate rhythm, tachycardia Respiratory lungs clear to auscultation, no respiratory distress, no wheeze, no rhonchi. Gastrointestinal abdomen soft, no abdominal tenderness, no guarding, no rigidity, bowel sounds audible Extremities no edema. Neuro non focal , no tremors Psych appropriate affect Objective Data Active Medications Amphetamine/Dextroamphetamine (Amphetamine Mixed Salts 10 Mg Tablet) 30 mg PO BID@0900,1400 [facility] Last Admin: 02/18/24 09:02 Dose: 30 mg Documented By: YULIA Cariprazine (Cariprazine Hcl 3 Mg Capsule) 3 mg PO DAILY [facility] Last Admin: 02/18/24 09:02 Dose: 3 mg Documented By: YULIA Fluticasone Propionate (Fluticasone Propionate Nasal 16 Gm [place]) 2 spray NOSTRIL-B DAILY PRN PRN Reason: Allergy Symptoms Hydromorphone HCl (Hydromorphone Hcl 1 Mg/Ml Syringe) 0.5 mg IVPUSH Q4H PRN; Protocol PRN Reason: Pain, Severe (Pain Scale 7-10) Thiamine HCl 100 mg/ Sodium (Chloride) 101 mls @ 202 mls/hr IV DAILY [facility] Last Admin: 02/18/24 10:35 Dose: 202 mls/hr Documented By: YULIA Piperacillin Sod/Tazobactam (Sod 3.375 gm/ Sodium Chloride) 50 mls @ 100 mls/hr IV Q6H [facility] Last Infusion: 02/18/24 06:37 Dose: Infused Documented By: ELMER Labetalol HCl (Labetalol Hcl 100 Mg/20 Ml Vial) 10 mg IVPUSH Q4H PRN; Protocol PRN Reason: SBP > 170 Last Admin: 02/16/24 05:54 Dose: 10 mg Documented By: ROBERTH Lorazepam (Lorazepam 0.5 Mg Tablet) 0.5 mg PO Q8H PRN PRN Reason: Anxiety Last Admin: 02/18/24 09:00 Dose: 0.5 mg Documented By: YULIA Non-Formulary Medication (Norethindrone Ac-Eth Estradiol [Microgestin 10/20 ()]) 1 tab PO DAILY [facility] Ondansetron HCl (Ondansetron Hcl 4 Mg/2 Ml Vial) 4 mg IVPUSH Q6H PRN PRN Reason: Nausea and Vomiting Last Admin: 02/18/24 09:23 Dose: 4 mg Documented By: YULIA Pantoprazole Sodium (Pantoprazole Sodium 40 Mg/10 Ml Vial) 40 mg IVPUSH Q12H [facility] Last Admin: 02/18/24 09:02 Dose: 40 mg Documented By: YULIA Phenobarbital (Phenobarbital 30 Mg Tablet) 30 mg PO BID [facility]; Protocol Stop: 02/20/24 09:01 Phenobarbital (Phenobarbital 15 Mg Tablet) 15 mg PO DAILY [facility]; Protocol Stop: 02/22/24 09:01 Labs 02/18/24 04:48 02/18/24 04:48 Labs: Laboratory Results - last 24 hr 02/17/24 02/18/24 09:11 04:48 MCV 94.7 MCH 33.0 MCHC 34.9 RDW 14.5 Plt Count 200 MPV 9.9 Absolute Nucleated RBC 0.000 Nucleated RBC % (auto) 0.0 Anion Gap 15 Estim Creat Clear Calc 156.7 Estimated GFR > 60 Random Glucose 175 H Calcium 6.9 L Magnesium 1.9 C-React Prot High Sens >20.0 H Hepatitis A IgM Ab Nonreactive Hep Bs Antigen Negative Hep Bs Antibody REACTIVE Hep B Core Total Ab Nonreactive Hepatitis C Ab (EIA) Nonreactive Microbiology Microbiology Results: Microbiology 02/15/24 23:30 Blood Culture - Preliminary Blood - Venous No growth after 48 hours. 02/15/24 23:26 Blood Culture - Preliminary Blood - Venous No growth after 48 hours. Assessment and Plan (1) Sinus tachycardia: Status: Acute (2) Hypomagnesemia: Status: Acute (3) Acute hypokalemia: Status: Acute (4) Alcohol intoxication: Status: Acute Plan 28-year-old admitted due to abdominal pain, and ER noted to have leukocytosis, lactic acidosis, hypokalemia, hyponatremia and hypo magnesemia, CT abdomen and pelvis showed findings consistent with acute pancreatitis with suspicion for early pancreatic necrosis, significant peripancreatic infiltration/fluid with fluid tracking along the upper retroperitoneum and hepatic steatosis Acute alcoholic pancreatitis with suspected early pancreatic necrosis Abdominal pain improving, WBC trending down, no fevers lipase trended down/ will advance to regular low-fat diet, DC IV fluid, DC IV Protonix, minimize narcotics , continue IV Zosyn strongly recommend to abstain from alcohol Drop in H&H likely dilutional, no active bleed noted Monitor renal function/electrolytes/CBC Seen by GI agree with above treatment plan Acute hyponatremia due to beer potomania, gradually improving, monitor BMP, restrict po fluids. Acute hypokalemia will replete and follow labs. Acute hypomagnesemia repleted and normalized. Acute hypocalcemia IV calcium gluconate, follow labs. Alcohol intoxication with high likelihood of alcohol withdrawal. continue phenobarb, thiamine and folic acid, counseling done. Tachycardia likely due to alcohol withdrawal. Addiction consult pend. High anion gap metabolic acidosis likely due to alcohol abuse resolved with IV fluids Elevated blood pressure likely due to pain , etoh WD , will follow BP. In my clinical judgment patient need continued inpatient hospitalization for continued treatment of acute alcoholic pancreatitis with IV analgesics, IV fluids and aggressive electrolyte replacement. Quality Stroke Does the patient have a stroke diagnosis?: No VTE Prior VTE?: No VTE Risk Level:: Medical - moderate - high VTE Device Contraindication: Treatment Not Indicated VTE Drug Contraindication: N/A - Med Ordered
[2024-02-18 11:25] LABS: Anion Gap 14 (12-20); Blood Urea Nitrogen < 3 mg/dL (9-16); Calcium 7.5 mg/dL (8.4-10.2); Carbon Dioxide 21 mmol/L (22-29); Chloride 103 mmol/L (96-108); Creatinine Clr Calc Pharmacy 168.5; Estimated Glomerular Filt Rate > 60; Glucose Random 157 mg/dL (60-115); Potassium 3.3 mmol/L (3.3-5.1); Sodium 135 mmol/L (135-145)
--- NOTE | 2024-02-18 11:26 | PC.NURSE ---
Addendum entered by Karon Louise 02/18/24 11:32: patient appears more comfortable at this time. medicated per the MAR - provided with snacks and water. resting quietly in room, call oropeza within reach. Original Note: late entry: patient tearful w/ RN upon morning medications. states she is frustrated after being in the ED since sunday evening w/ no movement, has no slept and states it has been too loud. requesting medication for anxiety.
[2024-02-18 11:55] LABS: C Reactive Protein 37.92 mg/dL (< or = 0.50)
[2024-02-18] MEDS: HYDROmorphone HCl 0.5 MG/0.5 ML SYRINGE IVPUSH ×2 (15:29→20:11)
--- NOTE | 2024-02-18 15:41 | PC.NURSE ---
patient requesting to be discharged at this time. meeting with recovery team, hospitalist at bedside.
[2024-02-18 17:03] VITALS: BP 197/118; PULSE 128; RESP 22; TEMP 36.4; O2SAT 97
[2024-02-18 19:24] VITALS: BP 197/118; PULSE 123; RESP 20; TEMP 36.4; O2SAT 95
[2024-02-18] MEDS: Labetalol HCL 100 MG/20 ML VIAL 20 MG IVPUSH (20:11)
[2024-02-18] MEDS: hydrOXYzine HCL 25 MG TABLET PO (20:11)
[2024-02-18] MEDS: PHENobarbitaL 30 MG TABLET PO (20:11)
[2024-02-18 23:26] VITALS: BP 180/110; PULSE 123; RESP 20; TEMP 36.3; O2SAT 93
[2024-02-19] VITALS (9 sets, daily range): BP systolic 160–199; BP diastolic 80–119; PULSE 84–122; RESP 17–20; TEMP 36.3–36.4; O2SAT 93–98
--- NOTE | 2024-02-19 | ECG_ITS ---
Test Reason : tachycardia Blood Pressure : / mmHG Vent. Rate : 123 BPM Atrial Rate : 123 BPM P-R Int : 128 ms QRS Dur : 086 ms QT Int : 322 ms P-R-T Axes : 040 007 049 degrees QTc Int : 460 ms Sinus tachycardia Anterior infarct (cited on or before 15-FEB-2024) Abnormal ECG When compared with ECG of 15-FEB-2024 21:23, Nonspecific T wave abnormality has replaced inverted T waves in Lateral leads Referred By: Hema Murrieta Electronically Signed By:DANILO REYNOSO MD
[2024-02-19] MEDS: HYDROmorphone HCl 0.5 MG/0.5 ML SYRINGE IVPUSH ×6 (00:30→20:53)
[2024-02-19] MEDS: OLANZapine 5 MG TABLET PO (00:34)
[2024-02-19] MEDS: Piperacillin Sodium/Tazobactam 3.375 GM in 0.9 % Sodium Chloride 50 ML IV ×5 (00:37→23:20)
--- NOTE | 2024-02-19 05:18 | PC.NURSE ---
Addendum entered by Karen Alcala RN 02/19/24 05:25: Around 00:30,pt c/o of feeling anxious and 9/10 back pain. MD Murrieta was notifed again of the pt's increased anxiety. One time dose of Zyprexa PO was ordered and given to pt with good effect, along with the PRN Dilaudid. After the the medications were administered to pt, pt's BP was rechecked for 170/90. Pt's BP was still elevated but went down from the previous one taken. Will continue to monitor the pt's BP and behavior. Original Note: Approximately after 19:30, after assuming care of pt, pt's BP was 197/118, HR 123, and was very anxious. Pt's BP was elevated during the previous shift as well. MD Murrieta was notified of the pt's increased BP and anixety. One time dose of Labetalol 20mg IV and Atarax was ordered. Medication was administered to pt per NOV with minimal effect. Pt's BP after the medication was little elevated at 180/110, pt denies any chest pain or SOB. Will continue to monitor pt's BP and behavior.
[2024-02-19 06:20] LABS: Hematocrit 31.2 % (37.0-47.0); Hemoglobin 10.9 g/dl (12.0-16.0); Mean Corpuscular HGB Conc 34.9 g/dl (31.0-35.0); Mean Corpuscular Hemoglobin 33.2 pg (27.0-33.0); Mean Corpuscular Volume 95.1 fL (80.0-98.0); Mean Platelet Volume 9.8 fL (9.4-12.3); Platelet Count 248 X10*3/uL (160-400); Red Blood Count 3.28 X10*6/uL (4.20-5.50); Red Cell Distribution Width 14.3 % (11.0-16.0); White Blood Count 16.3 X10*3/uL (4.8-10.8)
[2024-02-19 07:22] LABS: Anion Gap 17 (12-20); Blood Urea Nitrogen < 3 mg/dL (9-16); Calcium 7.8 mg/dL (8.4-10.2); Carbon Dioxide 21 mmol/L (22-29); Chloride 100 mmol/L (96-108); Creatinine Clr Calc Pharmacy 162.4; Estimated Glomerular Filt Rate > 60; Glucose Random 148 mg/dL (60-115); Magnesium 1.8 mg/dL (1.6-2.6); Sodium 135 mmol/L (135-145)
[2024-02-19 07:55] LABS: Potassium 2.9 mmol/L (3.3-5.1)
[2024-02-19 08:05] LABS: Thyroid Stimulating Hormone 6.61 uIU/mL (0.32-4.0)
[2024-02-19] MEDS: Amphetamine Mixed Salts 10 MG TABLET 30 MG PO ×2 (08:07→14:59)
[2024-02-19] MEDS: PHENobarbitaL 30 MG TABLET PO ×2 (08:07→23:20)
[2024-02-19] MEDS: Folic Acid 1 MG TABLET PO (08:08)
[2024-02-19] MEDS: Cariprazine HCl 3 MG CAPSULE PO (08:08)
[2024-02-19] MEDS: Thiamine HCL 100 MG TABLET PO (08:08)
[2024-02-19] MEDS: Potassium Chloride ER 20 MEQ TAB.ER.PRT 60 MEQ PO (09:46)
--- NOTE | 2024-02-19 10:14 | HO.ADDICT_ITS ---
History of Present Illness Date of Service: 02/19/2024 Chief Complaint: Acute pancreatitis Reason for Consult: alcohol related pancreatitits Sources of Information: patient interviewed and chart reviewed [facility] Narrative: Patient is a 28 year old female medically admitted with acute pancreatitis. Consult requested as patient reported increase in alcohol consumption prior to admission. Patient seen in room 450. She was awake, alert, pleasant and engaged in interview. She is tearful during several point in interview related to the recent loss of her dog last week. Discusses alcohol use. She reports that she does not feel she has an issue with drinking and only over the last couple of weeks has she been drinking more frequently She states she was drinking 3-4 shots of vodka daily, and that they were spread throughout the day. She denies any episodes of intoxication and states that she was using that alcohol to help calm her. Prior to the last few weeks she states that she would drink sporadically and when spending time with friends. She does report that from the age of [age] she was drinking alot and attended an IOP for several weeks. Denies any history of ATS (detox) admissions Denies any history of seizures or withdrawal sx Engaged with providers including psychiatrist Does not feel that medications for alcohol use disorder are warranted at this time, however is confident that if cravings or alcohol use increase she will reach out to provider for support. Denies any other substance use history. Medical Evaluation Reviewed: Yes Review of Systems Constitutional: Reports as per [facility] Diagnostics Vital Signs (24Hr): Vital Signs - 24 hr 02/18/24 17:03 02/18/24 19:24 02/18/24 23:26 Temperature 97.6 F 97.6 F 97.3 F Pulse Rate 128 H 123 H 123 H Respiratory Rate 22 H 20 20 Blood Pressure 197/118 H 197/118 H 180/110 H Pulse Oximetry 97 95 93 Oxygen Delivery Method Room Air Room Air Room Air 02/19/24 01:26 02/19/24 03:34 02/19/24 04:11 Temperature 97.6 F Pulse Rate 122 H Respiratory Rate 20 Blood Pressure 170/90 H 160/80 H Pulse Oximetry 93 Oxygen Delivery Method Room Air 02/19/24 07:32 Temperature 97.6 F Pulse Rate 84 Respiratory Rate 17 Blood Pressure 168/98 H Pulse Oximetry 94 Oxygen Delivery Method Room Air BMI result Body Mass Index 29.5 Labs 02/19/24 06:00 02/19/24 06:00 Labs: Laboratory Results - last 48 hr 02/17/24 02/18/24 02/18/24 09:11 04:48 11:04 WBC 17.8 H RBC 3.21 L Hgb 10.6 L D Hct 30.4 L MCV 94.7 MCH 33.0 MCHC 34.9 RDW 14.5 Plt Count 200 MPV 9.9 Absolute Nucleated RBC 0.000 Nucleated RBC % (auto) 0.0 Sodium 132 L 135 Potassium 2.8 L* 3.3 Chloride 101 103 Carbon Dioxide 19 L 21 L Anion Gap 15 14 BUN < 3 L < 3 L Creatinine 0.57 0.53 Estim Creat Clear Calc 156.7 168.5 Estimated GFR > 60 > 60 Random Glucose 175 H 157 H Calcium 6.9 L 7.5 L D Magnesium 1.9 C-Reactive Protein 37.92 H C-React Prot High Sens >20.0 H TSH Hepatitis A IgM Ab Nonreactive Hep Bs Antigen Negative Hep Bs Antibody REACTIVE Hep B Core Total Ab Nonreactive Hepatitis C Ab (EIA) Nonreactive 02/19/24 06:00 WBC 16.3 H RBC 3.28 L Hgb 10.9 L Hct 31.2 L MCV 95.1 MCH 33.2 H MCHC 34.9 RDW 14.3 Plt Count 248 MPV 9.8 Absolute Nucleated RBC 0.000 Nucleated RBC % (auto) 0.0 Sodium 135 Potassium 2.9 L* Chloride 100 Carbon Dioxide 21 L Anion Gap 17 BUN < 3 L Creatinine 0.55 Estim Creat Clear Calc 162.4 Estimated GFR > 60 Random Glucose 148 H Calcium 7.8 L Magnesium 1.8 C-Reactive Protein C-React Prot High Sens TSH 6.61 H Hepatitis A IgM Ab Hep Bs Antigen Hep Bs Antibody Hep B Core Total Ab Hepatitis C Ab (EIA) Imaging Radiology Impressions: ITS Impressions Abdomen/Pelvis CT 02/16/24 00:18 IMPRESSION: 1. Findings consistent with acute pancreatitis. There is diminished enhancement of the body and tail of the pancreas compared to the neck and head of the pancreas. Suspect early pancreatic necrosis. There is significant peripancreatic infiltration/fluid with fluid tracking along the upper retroperitoneum. 2. Hepatic steatosis. Fleischner guidelines were followed. Mental Status Exam Mental Status Exam Patient Appearance: Appropriate Level of Consciousness: Awake, Appropriate and Alert Patient Behavior: Talkative Mood Description: Calm Affect Description: Calm Patient Cognition Impaired: No Medications Medications Current Medications Amphetamine/Dextroamphetamine (Amphetamine Mixed Salts 10 Mg Tablet) 30 mg PO BID@0900,1400 [facility] Last Admin: 02/19/24 08:07 Dose: 30 mg Cariprazine (Cariprazine Hcl 3 Mg Capsule) 3 mg PO DAILY [facility] Last Admin: 02/19/24 08:08 Dose: 3 mg Fluticasone Propionate (Fluticasone Propionate Nasal 16 Gm [place]) 2 spray NOSTRIL-B DAILY PRN PRN Reason: Allergy Symptoms Folic Acid (Folic Acid 1 Mg Tablet) 1 mg PO DAILY [facility] Last Admin: 02/19/24 08:08 Dose: 1 mg Hydromorphone HCl (Hydromorphone Hcl 0.5 Mg/0.5 Ml Syringe) 0.5 mg IVPUSH Q4H PRN; Protocol PRN Reason: Pain, Severe (Pain Scale 7-10) Last Admin: 02/19/24 08:17 Dose: 0.5 mg Piperacillin Sod/Tazobactam (Sod 3.375 gm/ Sodium Chloride) 50 mls @ 100 mls/hr IV Q6H [facility] Last Infusion: 02/19/24 06:18 Dose: Infused Lorazepam (Lorazepam 0.5 Mg Tablet) 0.5 mg PO Q8H PRN PRN Reason: Anxiety Last Admin: 02/18/24 09:00 Dose: 0.5 mg Ondansetron HCl (Ondansetron Hcl 4 Mg/2 Ml Vial) 4 mg IVPUSH Q6H PRN PRN Reason: Nausea and Vomiting Last Admin: 02/18/24 09:23 Dose: 4 mg Phenobarbital (Phenobarbital 30 Mg Tablet) 30 mg PO BID [facility]; Protocol Stop: 02/20/24 09:01 Last Admin: 02/19/24 08:07 Dose: 30 mg Phenobarbital (Phenobarbital 15 Mg Tablet) 15 mg PO DAILY [facility]; Protocol Stop: 02/22/24 09:01 Prazosin HCl (Prazosin Hcl 1 Mg Capsule) 1 mg PO BEDTIME [facility]; Protocol Thiamine HCl (Thiamine Hcl 100 Mg Tablet) 100 mg PO DAILY [facility] Last Admin: 02/19/24 08:08 Dose: 100 mg Allergies Allergies Allergy/AdvReac Type Severity Reaction Status Date / Time bupropion [From Wellbutrin] Allergy Unknown Verified 02/15/24 21:15 Assessment & Plan Assessment & Plan (1) Acute pancreatitis: Qualifiers: Acute pancreatitis complication: unspecified Pancreatitis type: alcohol induced Qualified Code(s): K85.20 - Alcohol induced acute pancreatitis without necrosis or infection Status: Acute Code(s): K85.90 - Acute pancreatitis without necrosis or infection, unspecified Assessment and Plan: * patient with strong supports in place including and primary care providers * declines referrals or resources at this time * risk reduction/relapse prevention discussion Total time managing care of this patient today _40___ minutes. [facility] Social History Social History Household Members: Spouse Housing: House Do you presently have visiting nurse or other home services: No Unable to assess alcohol history related to: Unknown Patient Tobacco Use Status: Current everyday Tobacco user Tobacco use type: Cigarette Cigarettes Per Day: 3 Substance Use Type: Marijuana service: No
--- NOTE | 2024-02-19 12:10 | HO.PM.IMPN ---
Subjective Subjective Date of Service: 02/19/24 Interval History: Feeling better, slept well last night, decreased by mouth intake abdominal pain is better complaining of back discomfort, no nausea, no vomiting, no abdominal pain, no fever, no chills, no diarrhea, no other acute issues overnight. Review of Systems All other system reviewed and negative. Physical Exam Vital Signs: Vital Signs: Last Vital Signs Temp 97.5 F 02/19/24 11:02 Pulse 122 H 02/19/24 11:02 Resp 20 02/19/24 11:02 BP 187/112 H 02/19/24 11:02 Pulse Ox 98 02/19/24 11:02 O2 Del Method Room Air 02/19/24 11:02 BMI result Body Mass Index 29.5 Const: Other: General awake alert, in no acute distress. Neck is supple no JVD. CVS regular rate rhythm, tachycardia Respiratory lungs clear to auscultation, no respiratory distress, no wheeze, no rhonchi. Gastrointestinal abdomen soft, no abdominal tenderness, no guarding, no rigidity, bowel sounds audible Extremities no edema. Neuro non focal , no tremors Psych appropriate affect Objective Data Active Medications Amphetamine/Dextroamphetamine (Amphetamine Mixed Salts 10 Mg Tablet) 30 mg PO BID@0900,1400 [facility] Last Admin: 02/19/24 08:07 Dose: 30 mg Documented By: GRETCHEN Cariprazine (Cariprazine Hcl 3 Mg Capsule) 3 mg PO DAILY [facility] Last Admin: 02/19/24 08:08 Dose: 3 mg Documented By: GRETCHEN Fluticasone Propionate (Fluticasone Propionate Nasal 16 Gm [place]) 2 spray NOSTRIL-B DAILY PRN PRN Reason: Allergy Symptoms Folic Acid (Folic Acid 1 Mg Tablet) 1 mg PO DAILY [facility] Last Admin: 02/19/24 08:08 Dose: 1 mg Documented By: GRETCHEN Hydromorphone HCl (Hydromorphone Hcl 0.5 Mg/0.5 Ml Syringe) 0.5 mg IVPUSH Q4H PRN; Protocol PRN Reason: Pain, Severe (Pain Scale 7-10) Last Admin: 02/19/24 08:17 Dose: 0.5 mg Documented By: GRETCHEN Piperacillin Sod/Tazobactam (Sod 3.375 gm/ Sodium Chloride) 50 mls @ 100 mls/hr IV Q6H [facility] Last Infusion: 02/19/24 06:18 Dose: Infused Documented By: JESIKA Lorazepam (Lorazepam 0.5 Mg Tablet) 0.5 mg PO Q8H PRN PRN Reason: Anxiety Last Admin: 02/18/24 09:00 Dose: 0.5 mg Documented By: YULIA Ondansetron HCl (Ondansetron Hcl 4 Mg/2 Ml Vial) 4 mg IVPUSH Q6H PRN PRN Reason: Nausea and Vomiting Last Admin: 02/18/24 09:23 Dose: 4 mg Documented By: YULIA Phenobarbital (Phenobarbital 30 Mg Tablet) 30 mg PO BID [facility]; Protocol Stop: 02/20/24 09:01 Last Admin: 02/19/24 08:07 Dose: 30 mg Documented By: GRETCHEN Phenobarbital (Phenobarbital 15 Mg Tablet) 15 mg PO DAILY [facility]; Protocol Stop: 02/22/24 09:01 Prazosin HCl (Prazosin Hcl 1 Mg Capsule) 1 mg PO BEDTIME [facility]; Protocol Thiamine HCl (Thiamine Hcl 100 Mg Tablet) 100 mg PO DAILY [facility] Last Admin: 02/19/24 08:08 Dose: 100 mg Documented By: GRETCHEN Labs 02/19/24 06:00 02/19/24 06:00 Labs: Laboratory Results - last 24 hr 02/19/24 06:00 MCV 95.1 MCH 33.2 H MCHC 34.9 RDW 14.3 Plt Count 248 MPV 9.8 Absolute Nucleated RBC 0.000 Nucleated RBC % (auto) 0.0 Anion Gap 17 Estim Creat Clear Calc 162.4 Estimated GFR > 60 Random Glucose 148 H Calcium 7.8 L Magnesium 1.8 TSH 6.61 H Assessment and Plan (1) Sinus tachycardia: Status: Acute (2) Hypomagnesemia: Status: Acute (3) Acute hypokalemia: Status: Acute (4) Alcohol intoxication: Status: Acute Plan 28-year-old admitted due to abdominal pain, and ER noted to have leukocytosis, lactic acidosis, hypokalemia, hyponatremia and hypo magnesemia, CT abdomen and pelvis showed findings consistent with acute pancreatitis with suspicion for early pancreatic necrosis, significant peripancreatic infiltration/fluid with fluid tracking along the upper retroperitoneum and hepatic steatosis Acute alcoholic pancreatitis with suspected early pancreatic necrosis Abdominal pain resolved, WBC trending down, no fevers, significantly elevated CRP lipase trended down/ tolerating regular low-fat diet, minimize narcotics , continue IV Zosyn strongly recommend to abstain from alcohol Drop in H&H likely dilutional, no active bleed noted Monitor renal function/electrolytes/CBC Seen by GI agree with above treatment plan Acute hyponatremia due to beer potomania, resolved . Acute hypokalemia will replete and follow labs. Acute hypomagnesemia repleted and normalized. Acute hypocalcemia stable Alcohol intoxication with high likelihood of alcohol withdrawal. continue phenobarb, thiamine and folic acid, counseling done. Seen by Addiction Team patient declined outpatient resources Sinus tachycardia/elevated blood pressure likely related to Adderall/alcohol withdrawal Recommend to take prazosin 1 mg at bedtime High anion gap metabolic acidosis likely due to alcohol abuse resolved with IV fluids In my clinical judgment patient need continued inpatient hospitalization for continued treatment of acute alcoholic pancreatitis with IV analgesics, and aggressive electrolyte replacement. Quality Stroke Does the patient have a stroke diagnosis?: No VTE Prior VTE?: No VTE Risk Level:: Medical - moderate - high VTE Device Contraindication: Treatment Not Indicated VTE Drug Contraindication: N/A - Med Ordered
[2024-02-19] MEDS: cloNIDine HCL 0.1 MG TABLET PO (12:23)
[2024-02-19] MEDS: hydrOXYzine HCL 50 MG TABLET PO (19:17)
[2024-02-19] MEDS: PHENobarbitaL sodium 130 MG/ML VIAL IM (19:17)
[2024-02-19] MEDS: Prazosin HCL 1 MG CAPSULE PO (20:49)
[2024-02-19] MEDS: LORazepam 0.5 MG TABLET PO (20:54)
[2024-02-20] VITALS: BP 183/118; PULSE 126; RESP 20; TEMP 36.4; O2SAT 97
[2024-02-20] MEDS: HYDROmorphone HCl 0.5 MG/0.5 ML SYRINGE IVPUSH ×3 (01:19→11:07)
[2024-02-20] MEDS: Piperacillin Sodium/Tazobactam 3.375 GM in 0.9 % Sodium Chloride 50 ML IV ×2 (06:55→11:08)
[2024-02-20 07:03] LABS: Hematocrit 30.2 % (37.0-47.0); Hemoglobin 10.5 g/dl (12.0-16.0); Mean Corpuscular HGB Conc 34.8 g/dl (31.0-35.0); Mean Platelet Volume 9.9 fL (9.4-12.3); Platelet Count 261 X10*3/uL (160-400); Red Blood Count 3.18 X10*6/uL (4.20-5.50); Red Cell Distribution Width 14.3 % (11.0-16.0); White Blood Count 12.5 X10*3/uL (4.8-10.8)
[2024-02-20 07:16] LABS: Anion Gap 13 (12-20); Blood Urea Nitrogen < 3 mg/dL (9-16); Calcium 8.2 mg/dL (8.4-10.2); Carbon Dioxide 23 mmol/L (22-29); Chloride 100 mmol/L (96-108); Estimated Glomerular Filt Rate > 60; Glucose Random 150 mg/dL (60-115); Potassium 3.2 mmol/L (3.3-5.1); Sodium 133 mmol/L (135-145)
[2024-02-20 08:00] VITALS: BP 193/102; PULSE 125; RESP 17; TEMP 36.3; O2SAT 98
[2024-02-20] MEDS: Folic Acid 1 MG TABLET PO (08:42)
[2024-02-20] MEDS: Potassium Chloride ER 20 MEQ TAB.ER.PRT 40 MEQ PO (08:42)
[2024-02-20] MEDS: Amphetamine Mixed Salts 10 MG TABLET 30 MG PO ×2 (08:42→15:44)
[2024-02-20 08:43] VITALS: BP 193/102
[2024-02-20] MEDS: Cariprazine HCl 3 MG CAPSULE PO (08:43)
[2024-02-20] MEDS: PHENobarbitaL 30 MG TABLET PO (08:43)
[2024-02-20] MEDS: Thiamine HCL 100 MG TABLET PO (08:43)
[2024-02-20] MEDS: cloNIDine HCL 0.1 MG TABLET PO (08:43)
--- NOTE | 2024-02-20 10:39 | MHC.CM.PN ---
Per ROUNDS discussion, Patient is not yet medically cleared for d c(persistent abdominal pain); home is the goal and CM will continue to follow.
[2024-02-20 12:00] VITALS: BP 184/111; PULSE 120; RESP 17; TEMP 36.2; O2SAT 100
--- NOTE | 2024-02-20 13:13 | HO.PM.IMPN ---
Subjective Subjective Date of Service: 02/20/24 Interval History: Being followed for to alcoholic pancreatitis Abdominal pain has resolved tolerating diet , denies nausea, no vomiting, complaining of lower back discomfort. Denies fever, has intermittent palpitation admits to have chronic palpitations Receive Ativan last night, and was unable to sleep, unable to explain what happened but took Ativan in the past and had similar reaction. Review of Systems All other system reviewed and negative. More so Physical Exam Vital Signs: Vital Signs: Last Vital Signs Temp 97.2 F 02/20/24 12:00 Pulse 120 H 02/20/24 12:00 Resp 17 02/20/24 12:00 BP 184/111 H 02/20/24 12:00 Pulse Ox 100 02/20/24 12:00 O2 Del Method Room Air 02/20/24 12:00 BMI result Body Mass Index 29.5 Const: Other: General awake alert, in no acute distress. Neck is supple no JVD. CVS regular rate rhythm, tachycardia Respiratory lungs clear to auscultation, no respiratory distress, no wheeze, no rhonchi. Gastrointestinal abdomen soft, no abdominal tenderness, no guarding, no rigidity, bowel sounds audible. Back bilateral flank pain, no spasm Extremities no edema. Neuro non focal , no tremors. Psych appropriate affect Objective Data Active Medications Amphetamine/Dextroamphetamine (Amphetamine Mixed Salts 10 Mg Tablet) 30 mg PO BID@0900,1400 [facility] Last Admin: 02/20/24 08:42 Dose: 30 mg Documented By: OLIVER Cariprazine (Cariprazine Hcl 3 Mg Capsule) 3 mg PO DAILY [facility] Last Admin: 02/20/24 08:43 Dose: 3 mg Documented By: OLIVER Fluticasone Propionate (Fluticasone Propionate Nasal 16 Gm [place]) 2 spray NOSTRIL-B DAILY PRN PRN Reason: Allergy Symptoms Folic Acid (Folic Acid 1 Mg Tablet) 1 mg PO DAILY [facility] Last Admin: 02/20/24 08:42 Dose: 1 mg Documented By: OLIVER Hydromorphone HCl (Hydromorphone Hcl 0.5 Mg/0.5 Ml Syringe) 0.5 mg IVPUSH Q4H PRN; Protocol PRN Reason: Pain, Severe (Pain Scale 7-10) Last Admin: 05/22/24 11:07 Dose: 0.5 mg Documented By: OLIVER Piperacillin Sod/Tazobactam (Sod 3.375 gm/ Sodium Chloride) 50 mls @ 100 mls/hr IV Q6H [facility] Last Infusion: 02/20/24 12:08 Dose: Infused Documented By: OLIVER Ondansetron HCl (Ondansetron Hcl 4 Mg/2 Ml Vial) 4 mg IVPUSH Q6H PRN PRN Reason: Nausea and Vomiting Last Admin: 02/18/24 09:23 Dose: 4 mg Documented By: YULIA Phenobarbital (Phenobarbital 15 Mg Tablet) 15 mg PO DAILY [facility]; Protocol Stop: 02/22/24 09:01 Prazosin HCl (Prazosin Hcl 1 Mg Capsule) 1 mg PO BEDTIME [facility]; Protocol Last Admin: 02/19/24 20:49 Dose: 1 mg Documented By: YANI Thiamine HCl (Thiamine Hcl 100 Mg Tablet) 100 mg PO DAILY [facility] Last Admin: 02/20/24 08:43 Dose: 100 mg Documented By: OLIVER Labs 02/20/24 06:31 02/20/24 06:31 Labs: Laboratory Results - last 24 hr 02/20/24 06:31 MCV 95.0 MCH 33.0 MCHC 34.8 RDW 14.3 Plt Count 261 MPV 9.9 Absolute Nucleated RBC 0.000 Nucleated RBC % (auto) 0.0 Anion Gap 13 Estim Creat Clear Calc 190.0 Estimated GFR > 60 Random Glucose 150 H Calcium 8.2 L Assessment and Plan (1) Sinus tachycardia: Status: Acute (2) Hypomagnesemia: Status: Acute (3) Acute hypokalemia: Status: Acute (4) Alcohol intoxication: Status: Acute Plan 28-year-old admitted due to abdominal pain, and ER noted to have leukocytosis, lactic acidosis, hypokalemia, hyponatremia and hypo magnesemia, CT abdomen and pelvis showed findings consistent with acute pancreatitis with suspicion for early pancreatic necrosis, significant peripancreatic infiltration/fluid with fluid tracking along the upper retroperitoneum and hepatic steatosis Acute alcoholic pancreatitis with suspected early pancreatic necrosis Abdominal pain resolved, WBC trending down, no fevers, significantly elevated CRP lipase trended down/ tolerating regular low-fat diet, minimize narcotics , dc IV Zosyn day 5 strongly recommend to abstain from alcohol Drop in H&H likely dilutional, no active bleed noted Monitor renal function/electrolytes/CBC/follow CRP Seen by GI agree with above treatment plan Use Tylenol/hot pack for back pain. Acute hyponatremia due to beer potomania, improved to 133. Acute hypokalemia improving will replete and follow labs. Acute hypomagnesemia repleted and normalized. Acute hypocalcemia stable Alcohol intoxication with high likelihood of alcohol withdrawal. continue phenobarb, thiamine and folic acid, counseling done. Seen by Addiction Team patient declined outpatient resources Sinus tachycardia/elevated blood pressure likely related to Adderall/alcohol withdrawal No headache, no dizziness, no chest pain, no palpitation increase dose of prazosin to 3 mg at bedtime, TSH 6.6, hematocrit dropped but stable, likely delusional. Tried clonidine with no affect will give Norvasc 5 mg and follow BP High anion gap metabolic acidosis likely due to alcohol abuse resolved with IV fluids. In my clinical judgment patient need continued inpatient hospitalization for continued treatment of acute alcoholic pancreatitis with IV analgesics, and aggressive electrolyte replacement. Quality Stroke Does the patient have a stroke diagnosis?: No VTE Prior VTE?: No VTE Risk Level:: Medical - moderate - high VTE Device Contraindication: Treatment Not Indicated VTE Drug Contraindication: N/A - Med Ordered
[2024-02-20 15:55] VITALS: BP 180/109; PULSE 117; RESP 17; TEMP 36.2; O2SAT 100
[2024-02-20 16:47] VITALS: BP 184/110
[2024-02-20] MEDS: amLODIPine Besylate 5 MG TABLET PO (16:47)
[2024-02-20] MEDS: Acetaminophen 325 MG TABLET 650 MG PO (16:47)
[2024-02-20] MEDS: Amoxicillin/Potassium Clav 875 MG TABLET PO (16:48)
--- NOTE | 2024-02-20 20:32 | PM.EVENT ---
Event Note Date of Service: 02/20/24 Event Note: I was called by the nurse as patient wanted to leave AMA. Patient stated that she feels better and did not feel like staying in the hospital. She is convinced that she wants to go home and sleep in her own bed. Patient deemed to have capacity. She understands the risks of leaving against medical advice. She said she will follow-up with her PCP and will come to the ER in case of any abdominal discomfort. Time Spent With Patient Time: Total time managing care of this patient today ____ minutes.
--- NOTE | 2024-02-21 17:33 | P.DS_ITS ---
DS: Providers Provider Date of Service: 02/20/24 Date of admission: 02/16/24 00:27 Primary care physician: Tonya Siddiqui Consults: 02/16/24 01:39 Consult to Gastroenterology Routine Consulting Provider: Daniele Maurer Reason for consultation: Acute pancreatitis ? Early pancreatic necrosis Has provider been notified: No 02/17/24 12:55 Addiction Medicine Routine Consulting Provider: Addiction Covering Reason for consultation: etoh abuse Has provider been notified: No DS: Diagnosis Discharge Diagnosis (1) Sinus tachycardia: Status: Acute (2) Hypomagnesemia: Status: Acute (3) Acute hypokalemia: Status: Acute (4) Alcohol intoxication: Status: Acute DS: Summary Hospital Course Hospital Course: Date of Service: 02/16/24 Attending physician on admission: Lucy Mercer Chief Complaint: Abdominal pain Monie Almanzar is a 28 years old woman with history alcohol abuse presents to the emergency department complaining of epigastric pain that started yesterday associated with nausea and diarrhea. She denied events of vomiting. She stated that she drinks 2-3 alcoholic beverage daily, mostly Vodka and beer. The last time she drank was on hour and a half before arriving to the hospital. HPI was limited as the patient is in pain and has the urge to urinate. Patient also consume marijuana. Denied drug use. She stated that she has never been hospitalized for pancreatitis or alcohol abuse complications. In the ED, she was found to have significant sinus tachycardia and hypertension. Temperature is 96 degrees. There is leukocytosis 24.3, hemoglobin is 14.9 and platelets level is normal. Lactic acidosis noted, 3.5. There there are multiple electrolyte imbalances, including hypokalemia hyponatremia and hypomagnesemia. CO2 is 15 and crit 0.55. Transaminases are elevated with normal alk-phos and bilirubin. ED tx: NS 2 L bolus, Zosyn 3.375 g IV, Zofran 4 mg IV, magnesium sulfate 2 g IV, labetalol 20 mg IV and morphine 8 mg IV (total). Potassium bicarbonate 50 mEq p.o. Hospital course: 28-year-old admitted due to abdominal pain, and ER noted to have leukocytosis, lactic acidosis, hypokalemia, hyponatremia and hypo magnesemia, CT abdomen and pelvis showed findings consistent with acute pancreatitis with suspicion for early pancreatic necrosis, significant peripancreatic infiltration/fluid with fluid tracking along the upper retroperitoneum and hepatic steatosis, patient admitted to hospital with following medical issues. Acute alcoholic pancreatitis with suspected early pancreatic necrosis, patient treated with IV fluids, IV analgesics and IV Zosyn patient responded well to above treatment WBC improved significantly she had no fevers diet was gradually advanced that she tolerated well with no recurrent abdominal pain no nausea no vomiting or diarrhea her renal function electrolytes and CBC remained stable patient noted to have significantly elevated CRP, Plan was to continue by mouth antibiotic and repeat CRP and to monitor tachycardia and high blood pressure but however patient decided to leave hospital against medical advice because she felt she will be more comfortable at home patient was awake alert and was able to understand the consequences of getting worsening abdominal pain and pancreatitis, she was recommended to returned to hospital with any recurrent episodes of abdominal discomfort fever chills, she was seen by Addiction Team however she declined outpatient resources but was willing to abstain from alcohol. Acute hyponatremia due to beer potomania, sodium improved to 133, recommend to abstain from alcohol Acute hypokalemia persistent mild hypokalemia. Acute hypomagnesemia repleted and normalized. Acute hypocalcemia stable Alcohol intoxication with high risk of alcohol withdrawal treated with phenobarb thiamine and folic acid counseling done patient declined outpatient resources. Sinus tachycardia/elevated blood pressure likely related to Adderall/alcohol withdrawal, as per patient she has chronic tachycardia, she was recommended to continue prazosin at nighttime TSH 6.6, recommend outpatient follow-up with primary care physician, was treated with clonidine and Norvasc during hospitalization. High anion gap metabolic acidosis likely due to alcohol abuse resolved with IV fluids. Time Attestation Discharge Coordination Time (in mins): 38 Quality: Safe Use of Opioids Does Pt have an Active Cancer Diagnosis on the Problem List?: No Quality: Stroke Does the patient have a stroke diagnosis?: No Physical Exam Vital Signs: Vital Signs: Last Vital Signs Temp 97.2 F 02/20/24 15:55 Pulse 117 H 02/20/24 15:55 Resp 17 02/20/24 15:55 BP 184/110 H 02/20/24 16:47 Pulse Ox 100 02/20/24 15:55 O2 Del Method Room Air 02/20/24 15:55 BMI result Body Mass Index 29.5 Const: Other: General awake alert, in no acute distress. Neck is supple no JVD. CVS regular rate rhythm, tachycardia Respiratory lungs clear to auscultation, no respiratory distress, no wheeze, no rhonchi. Gastrointestinal abdomen soft, no abdominal tenderness, no guarding, no rigidity, bowel sounds audible. Back bilateral flank pain, no spasm Extremities no edema. Neuro non focal , no tremors. Psych appropriate affect Discharge Plan Discharge Patient Disposition: Left Against Medical Advice Discharge Diagnosis: Acute alcoholic pancreatitis Electrolyte abnormality Referrals: Physician,Unknown J [Physician] - 1 Week Discharge Medications: No Action meloxicam 15 mg tablet 15 mg PO DAILY PRN (Reason: Pain) dextroamphetamine-amphetamine 30 mg tablet 1 tab PO BID@0900,1400 famotidine 20 mg tablet 20 mg PO BID PRN (Reason: Heartburn) norethindrone ac-eth estradiol [Microgestin 10/20 ()] 1-20 mg-mcg tablet 1 tab PO DAILY fluticasone propionate 50 mcg/actuation spray,suspension 2 spray intranasal DAILY PRN (Reason: Allergy Symptoms) Vraylar 3 mg capsule 3 mg PO DAILY Discharge Orders: Discharge Order (Routine); Ordered 02/21/24 Ordered By: Arelis Deras Print Language: Mongolian Care Plan Goals: Recommend complete abstinence from alcohol Returned to check with recurrent abdominal pain nausea vomiting headache dizziness Follow blood pressure and pulse call physician with tachycardia Health Concerns: Alcohol use disorder Plan of Treatment: Outpatient follow-up with primary care physician call for appointment Assessment: As above Discharge Date/Time: 02/20/24 19:00
== END 2024-02-20 19:00 | disposition left against medical advice (07) | DRG 439 ==
LOC: HO.ED 22:13 → HO.EDOVER 02-16 00:57 → HO.IMC 02-18 15:55
PROVIDERS: Admitting Provider Internal Medicine; Emergency Provider Internal Medicine; PCP Nurse Practitioner Family; Visit Provider Hospitalist
DX: K85.21 Alcohol induced acute pancreatitis with uninfected necrosis (principal); E87.20 Acidosis, unspecified; F17.210 Nicotine dependence, cigarettes, uncomplicated; F10.129 Alcohol abuse with intoxication, unspecified; E83.51 Hypocalcemia; Y90.6 Blood alcohol level of 120-199 mg/100 ml; R00.0 Tachycardia, unspecified; I10 Essential (primary) hypertension; E83.42 Hypomagnesemia; E87.6 Hypokalemia; Z20.822 Contact with and (suspected) exposure to COVID-19; Z71.6 Tobacco abuse counseling; Z79.899 Other long term (current) drug therapy
CPT/HCPCS: 0241U; 36415; 74177; 80048; 80053; 80076; 80307; 81001; 81025; 82803; 83605; 83690; 83735; 84443; 84478; 85007; 85025; 85027; 86140; 86141; 86704; 86706; 86709; 86803; 87040; 87340; 92950; 93005; 99285; C9113; J0613; J1170; J1920; J2060; J2270; J2405; J2543; J2560; J3360; J3411; J3475; J3480; J7120; Q9967

== ENCOUNTER → 2024-02-15 21:23 | Outpatient (BNV) | payer OTHER, SELFPAY | PROVIDERS: Admitting Provider Internal Medicine; Emergency Provider Internal Medicine; Visit Provider Internal Medicine Cardiovascular Disease | DX: R00.0 Tachycardia, unspecified (principal) | CPT/HCPCS: 93010 ==

== ENCOUNTER 2024-02-16 00:27 | Outpatient (BNV) | payer OTHER, SELFPAY | END 2024-02-19 22:05 | PROVIDERS: Admitting Provider Internal Medicine; Emergency Provider Internal Medicine; PCP Nurse Practitioner Family; Visit Provider Internal Medicine Cardiovascular Disease | DX: R00.0 Tachycardia, unspecified (principal) | CPT/HCPCS: 93010 ==

== ENCOUNTER → 2024-02-16 00:27 | Outpatient (BNV) | payer OTHER, SELFPAY | PROVIDERS: Admitting Provider Internal Medicine; Emergency Provider Internal Medicine; PCP Nurse Practitioner Family; Visit Provider Nurse Practitioner Psychiatric/Mental Health | DX: F10.10 Alcohol abuse, uncomplicated (principal); K85.20 Alcohol induced acute pancreatitis without necrosis or infection | CPT/HCPCS: 99222 ==

== ENCOUNTER → 2024-02-16 00:27 | Outpatient (BNV) | payer OTHER, SELFPAY | PROVIDERS: Admitting Provider Internal Medicine; Emergency Provider Internal Medicine; Visit Provider Internal Medicine | DX: R00.0 Tachycardia, unspecified (principal); E83.42 Hypomagnesemia; E87.6 Hypokalemia; F10.929 Alcohol use, unspecified with intoxication, unspecified | CPT/HCPCS: 99223; 99232; 99233; 99239; 99499 ==